=== PATIENT | female | born 1945 | race Two or more races ===

== ENCOUNTER 2020-02-04 12:52 | Emergency (ER) | payer MEDICARE, MEDICAID, SELFPAY ==
--- NOTE | ~2020-02-04 | CT_ITS ---
EXAMINATION: CT brain wo con DATE: 02/04/2020 13:32 INDICATION: Frequent falls. TECHNIQUE: Computed tomography (CT) of the head was performed without intravenous contrast. The dose- length product was 681.00 mGy-cm. The mA was adjusted according to patient size. Iterative reconstruc tion technique was employed. COMPARISON: No prior studies for comparison. FINDINGS: No acute intracranial hemorrhage, infarction, mass or mass effect. Generalized atrophy. Pro minent lateral ventricles. There are scattered mild periventricular and subcortical white matter gandara ges, most likely related to small vessel ischemic disease (microangiopathy). No depressed skull fract ures. There is intracranial atherosclerosis. IMPRESSION: 1. No acute intracranial abnormality. 2: Mild ventriculomegaly which may be secondary to atrophy or normal pressure hydrocephalus. 3: Chronic age-related findings. Reviewed, dictated and finalized at location A.
[2020-02-04 12:57] VITALS: BP 134/86; PULSE 100; RESP 20; TEMP 36.4; O2SAT 99
--- NOTE | 2020-02-04 13:08 | ED.FALL ---
HPI - Fall General Chief Complaint: Fall Stated Complaint: NEURO SYMPTOMS Time Seen by Provider: 02/04/20 13:06 Source: patient and EMS Mode of arrival: EMS Limitations: no limitations History of Present Illness HPI Narrative: A 74 y/o male presents to the ED, via EMS from [facility], with c/o possible stroke. Per EMS, [facility] called EMS due to staff stating he was positive on the [place] Pre[facility] Stroke Scale. The staff told EMS that that he has fallen twice in the last 24 hours. EMS notes that on arrival he was not positive on the [place] scale. EMS adds that he has shuffling ambulation, but that is normal for him according to [place] staff. Pt reports chronic hiccups and vomiting, but denies ABD pain, SEPULVEDA, and dizziness. He notes that he has had chronic hiccups for years and that he gets intermittent episodes that lasts a couple of days. The chronic hiccuping causes him to vomit and he vomited yesterday, but did not vomit today. Pt takes Thorazine daily. MD complaint: other (Possible stroke) Onset (ago): hour(s) (Today) [facility] Associated symptoms (after fall): other (Chronic hiccups, vomiting) Related Data Home Medications Medication Instructions Recorded Confirmed aspirin [Aspir-81] 81 mg PO DAILY 02/04/20 atenolol 02/04/20 chlorpromazine 02/04/20 empagliflozin [Jardiance] mg 02/04/20 finasteride mg 02/04/20 fluoxetine mg 02/04/20 glimepiride mg 02/04/20 levothyroxine 02/04/20 memantine mg 02/04/20 metformin mg 02/04/20 naproxen 02/04/20 omeprazole 02/04/20 pravastatin 02/04/20 Allergies Allergy/AdvReac Type Severity Reaction Status Date / Time No Known Allergies Allergy Verified 02/04/20 15:10 Review of Systems Review of Systems: Narrative: CONSTITUTIONAL: Denies fever, chills, or sweats. Reports chronic hiccups. EYES: Denies visual changes, redness, or discharge. ENT: Denies rhinorrhea, congestion, sore throat, or otalgia. CARDIOVASCULAR: Denies chest pain, palpitations, or edema. RESPIRATORY: Denies cough or dyspnea. GASTROINTESTINAL: Denies abdominal pain, nausea, or diarrhea. Reports vomiting. GENITOURINARY: Denies dysuria or hematuria. SKIN: Denies rash or itching. MUSCULOSKELETAL: Denies back pain, joint pain, or myalgia. NEUROLOGIC: Denies headache, numbness, or weakness. All systems reviewed & are unremarkable except as noted in HPI and below PMFSH Past Medical History Medical History (Updated 02/04/20 @ 15:25 by Africa Solomon MD) Diabetes Hard of hearing Hiccups Chronic Normal pressure hydrocephalus Surgical History Surgical History (Updated 02/04/20 @ 13:29 by Tanya Cochran) No pertinent past surgical history Social History Social History (Updated 02/04/20 @ 13:28 by Tanya Cochran) Smoking status: Unknown if ever smoked Exam Narrative: Exam Narrative: GENERAL: Well-appearing, well-nourished, and in no acute distress. Chronic hiccuping. HEAD: Normocephalic, atraumatic. No cervical spine tenderness. EYES: PERRLA and EOMI. ENT: Nares clear, no rhinorrhea or epistaxis. Mucous membranes moist. NECK: Supple. CHEST: Clear to auscultation. No respiratory distress. No chest wall tenderness. HEART: Regular rate and rhythm. No murmur heard. Normal peripheral pulses. ABDOMEN: Soft, nontender, nondistended, normal active bowel sounds. EXTREMITIES: Normal range of motion. No edema. Pelvis is stable to anterior lateral compression. No limb length discrepancy. No pain with internal or external rotation of bilateral lower extremities. No evidence of deformities. SKIN: Warm, dry, abrasion to right forearm. NEURO: No focal deficits. Alert and oriented X3. EOMs intact without nystagmus. No facial droop/asymmetry noted bilaterally. Grimace intact. Intact sensation in face. Hearing intact bilaterally. Shoulder shrug intact. Strength 5/5 bilateral upper extremities. Strength 5/5 bilateral lower extremities. Reflexes 2+ patell
--- NOTE | 2020-02-04 13:15 | ECG_ITS ---
Measurements Intervals [place] Rate: 101 P: 82 WI: 169 QRS: -28 QRSD: 85 T: 63 QT: 327 QTc: 424 Interpretive Statements SINUS TACHYCARDIA DELAYED PRECORDIAL R/S TRANSITION INFERIOR INFARCT, AGE INDETERMINATE BORDERLINE T WAVE ABNORMALITY- ANTERIOR LEADS BASELINE ARTIFACT- I, II, III, AVR, AVL, AVF, V1-V6 ABNORMAL ECG Electronically Signed On 02-04-2020 15:40:13 CDT by Francisco Javier Hill D.O.
[2020-02-04 14:06] LABS: Basophils Percent Auto 0.3 % (0.2-1.2); Eosinophils Absolute Auto 0.3 K/mm3 (0-0.3); Eosinophils Percent Auto 3.3 % (0-4.4); Hemoglobin 13.6 g/dL (12.0-15.0); Immature Granulocyte Absolute 0.03 K/mm3 (0.00-0.031); Immature Granulocyte Percent A 0.3 % (0-0.5); Lymphocytes Absolute Auto 2.62 K/mm3 (0.9-3.2); Lymphocytes Percent Auto 30.5 % (18.3-44.2); Mean Corpuscular HGB Conc 31.6 g/dl (32-36); Mean Corpuscular Hemoglobin 26.9 pg (26-34); Mean Corpuscular Volume 85.1 fl (80-100); Mean Platelet Volume 10.9 fl (7.4-10.4); Monocytes Absolute Auto 0.8 K/mm3 (0.1-0.6); Monocytes Percent Auto 9.8 % (2.6-8.5); Neutrophils Absolute Auto 4.8 K/mm3 (1.3-6.7); Neutrophils Percent Auto 55.8 % (45.5-73.1); Platelet Count Result 315 k/mm3 (150-375); Red Blood Count 5.05 M/mm3 (4.2-5.4); Red Cell Distribution Width 13.7 % (11.5-14.5); White Blood Count 8.6 K/mm3 (4.5-10.0)
[2020-02-04] MEDS: SODIUM CHLORIDE 0.9% IV 1,000 ML 999 ML IV CONT (14:08)
[2020-02-04 14:22] LABS: Alanine Aminotransferase 15 U/L (4-35); Albumin Level 4.4 g/dL (3.5-5.1); Alkaline Phosphatase 75 U/L (38-126); Aspartate Amino Transferase 20 U/L (14-36); Bilirubin,Total 0.3 mg/dL (0.2-1.3); Blood Urea Nitrogen 14 mg/dL (7-17); Calcium 9.6 mg/dL (8.4-10.2); Carbon Dioxide 27 mmol/L (22-30); Chloride 98 mmol/L (98-107); Estimated CRCL calculation 65 ml/min; Estimated Glomerular Filt Rate > 60; Glucose 128 mg/dL (65-105); Lipase 40 U/L (23-300); Potassium 4.4 mmol/L (3.4-5.0); Sodium 134 mmol/L (137-145)
--- NOTE | 2020-02-04 14:38 | PC.NURSE ---
PT STATES THAT HE IS UNABLE TO GIVE URINE SAMPLE AT THIS TIME.
[2020-02-04 15:03] LABS: Add Urine Microscopic? YES; Appearance Urine Clear (Clear); Bilirubin Urine Negative (Negative); Blood Urine Negative (Negative); Color Urine Colorless (Yellow); Glucose Urine UA 3+ mg/dL (Negative); Ketones Urine Negative (Negative); Leukocyte Esterase Ur Negative LEU/UL (Negative); Nitrate Urine Negative (Negative); Protein Urine Negative (Negative); Specific Grav Ur 1.017 (1.001-1.035); Urobilinogen Urine Negative mg/dL (<2.0)
[2020-02-04 15:19] VITALS: PULSE 89; RESP 18; O2SAT 100
[2020-02-04 15:20] VITALS: BP 157/73; PULSE 87; RESP 15; O2SAT 100
== END 2020-02-04 16:17 ==
PROVIDERS: Emergency Provider Emergency Medicine; PCP Family Medicine
DX: Z04.3 Encounter for examination and observation following other accident (principal); E11.9 Type 2 diabetes mellitus without complications; Z79.84 Long term (current) use of oral hypoglycemic drugs; R06.6 Hiccough; G91.2 (Idiopathic) normal pressure hydrocephalus; W19.XXXA Unspecified fall, initial encounter
CPT/HCPCS: 36415; 70450; 80053; 81001; 83690; 85025; 93005; 96360; 99284; J7030

== ENCOUNTER 2020-02-20 14:04 | Emergency (ER) | payer MEDICARE, MEDICAID, SELFPAY ==
[2020-02-20] VITALS (13 sets, daily range): BP systolic 127; BP diastolic 71; PULSE 64–88; RESP 16–27; TEMP 36.8; O2SAT 94–100
--- NOTE | ~2020-02-20 | CT_ITS ---
EXAMINATION: CT brain wo con INDICATION: Transient alteration of awareness COMPARISON: 05/08/2015 TECHNIQUE: Standard unenhanced head CT. The dose-length product (DLP) was 605.33 mGy-cm. The mA was a djusted according to patient size. Iterative reconstruction technique was employed. FINDINGS: There is no acute intraparenchymal hemorrhage. No evidence of mass lesion. No evidence of a cute infarction. There is mild periventricular and subcortical hypodensity probably related to small vessel ischemic disease. Chronic ventriculomegaly is noted. Intracranial calcified cerebral atheroscl erosis is noted. There are no extra-axial collections. There is no mass effect or midline shift. The orbits and soft tissues are unremarkable. There is mild mucosal thickening of the paranasal sinuses. IMPRESSION: 1. Chronic ventriculomegaly without acute intracranial abnormality. 2. Age related findings. Reviewed, dictated and finalized at location B.
--- NOTE | ~2020-02-20 | XR_ITS ---
EXAMINATION: XR chest 1V 02/20/2020 14:35 INDICATION: Chest pain PROCEDURE: 2 view chest COMPARISON: 04/15/2019 FINDINGS: The lungs are clear. The cardiomediastinal silhouette is within normal limits. There are no pleural effusions. There is no pneumothorax suspected. There are calcifications overlying the le ft thorax, external to the chest. There is atherosclerosis. IMPRESSION: 1: NO ACUTE CARDIOPULMONARY DISEASE. Reviewed, dictated and finalized at location A.
--- NOTE | 2020-02-20 14:20 | ECG_ITS ---
Measurements Intervals [place] Rate: 64 P: 50 CO: 182 QRS: 17 QRSD: 74 T: 57 QT: 391 QTc: 406 Interpretive Statements SINUS RHYTHM LOW QRS VOLTAGE IN PRECORDIAL LEADS DELAYED PRECORDIAL R/S TRANSITION BORDERLINE T WAVE ABNORMALITY- ANT/INF LEADS BASELINE ARTIFACT- I, II, III, AVR, AVL, AVF, V1-V6 BORDERLINE ECG Electronically Signed On 02-20-2020 17:53:58 CDT by Francisco Javier Hill D.O.
--- NOTE | 2020-02-20 14:44 | ED.GENADULT ---
HPI - General Adult General Chief complaint: Unspecified Stated complaint: AMS Time Seen by Provider: 02/20/20 14:05 Source: patient, EMS and RN notes reviewed Mode of arrival: EMS Limitations: no limitations History of Present Illness HPI narrative: Patient is 74-year-old male who presents to emergency department per EMS for evaluation of not wanting to ambulate and possibly abnormal speech that occurred this morning EMS noted upon arrival they stated the patient was speaking normally and was able to ambulate normally patient with history of normal pressure hydrocephalus. Patient on arrival resting comfortably in the room in no distress denying any symptoms or pain or injury or trauma Related Data Home Medications Medication Instructions Recorded Confirmed aspirin [Aspir-81] 02/20/20 atenolol 25 mg PO DAILY 02/20/20 chlorpromazine 10 mg PO BID 02/20/20 empagliflozin [Jardiance] 10 mg PO DAILY 02/20/20 finasteride 5 mg PO DAILY 02/20/20 fluoxetine 20 mg PO DAILY 02/20/20 glimepiride 2 mg PO BID 02/20/20 levothyroxine 25 mcg PO DAILY 02/20/20 memantine 10 mg PO QPM 02/20/20 metformin 500 mg PO BID 02/20/20 naproxen 500 mg PO DAILY PRN 02/20/20 omeprazole 40 mg PO DAILY 02/20/20 pravastatin 10 mg PO DAILY 02/20/20 Allergies Allergy/AdvReac Type Severity Reaction Status Date / Time Fbehqds-Bwo-Qee Reductase Allergy Mild Unknown Verified 02/20/20 14:19 Inhibitor Review of Systems Review of Systems: All systems reviewed & are unremarkable except as noted in HPI and below PMFSH Past Medical History Medical History Normal pressure hydrocephalus Family History Family History Sibling Patient's sister is in good health Mother Patient's mother is Father Patient's father is Social History Social History Smoking status: Never smoker Smoking end date: 11/29/84 Alcohol intake: never Exam Narrative: Exam Narrative: GENERAL: Well-appearing, well-nourished, and in no acute distress. HEAD: Normocephalic, atraumatic. EYES: PERRLA and EOMI. ENT: Nares clear, no rhinorrhea or epistaxis. Mucous membranes moist. Oropharynx without tonsillar hypertrophy exudate or other lesions. NECK: Supple. No adenopathy or masses. CHEST: Clear to auscultation. No respiratory distress. No wheezes rales or rhonchi HEART: Regular rate and rhythm. No murmur heard. Normal peripheral pulses. ABDOMEN: Soft, nontender, nondistended EXTREMITIES: Normal range of motion. No edema. SKIN: Warm, dry, no rash. NEURO: No focal deficits. Alert and oriented person place and reason for being in the emergency department. Cranial nerves II through XII grossly intact. Normal speech. Cerebellar intact. No pronator drift. 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 Course Course Emergency Course: Patient in the room with family noting the patient is at baseline in no distress resting comfortably in the room with no complaints felt appropriate for outpatient reevaluation Vital Signs Vital signs: Vital Signs Temperature 98.2 F 02/20/20 14:09 Pulse Rate 69 02/20/20 14:09 Respiratory Rate 16 02/20/20 14:09 Blood Pressure 127/71 02/20/20 14:09 Pulse Oximetry 100 02/20/20 14:09 Temperature 98.2 F 02/20/20 14:09 Pulse Rate 71 02/20/20 16:30 Respiratory Rate 23 H 02/20/20 16:46 Blood Pressure 127/71 02/20/20 14:09 Pulse Oximetry 99 02/20/20 15:15 Medical Decision Making [facility] Narrative Medical decision making narrative: Patient in the room in no distress no high risk changes in the blood work or imaging felt appropriate for outpatient reevaluation agreeing to follow-up as directed or to return if symptoms worsen family will take the patient back to halfway. Patient was hydrated in th
[2020-02-20 14:48] LABS: Glucose Point of Care 204 (65-105)
[2020-02-20 14:56] LABS: Basophils Percent Auto 0.3 % (0.2-1.2); Eosinophils Absolute Auto 0.3 K/mm3 (0-0.3); Hematocrit 48.2 % (42.0-52.0); Hemoglobin 14.9 g/dL (14.0-18.0); Immature Granulocyte Absolute 0.03 K/mm3 (0.00-0.031); Immature Granulocyte Percent A 0.3 % (0-0.5); Lymphocytes Absolute Auto 2.12 K/mm3 (0.9-3.2); Lymphocytes Percent Auto 24.3 % (18.3-44.2); Mean Corpuscular HGB Conc 30.9 g/dl (32-36); Mean Corpuscular Volume 87.5 fl (80-100); Mean Platelet Volume 11.5 fl (7.4-10.4); Monocytes Absolute Auto 0.7 K/mm3 (0.1-0.6); Monocytes Percent Auto 8.3 % (2.6-8.5); Neutrophils Absolute Auto 5.6 K/mm3 (1.3-6.7); Neutrophils Percent Auto 63.8 % (45.5-73.1); Platelet Count Result 321 k/mm3 (150-375); Red Blood Count 5.51 M/mm3 (4.6-6.20); Red Cell Distribution Width 14.3 % (11.5-14.5); White Blood Count 8.7 K/mm3 (4.5-10.0)
[2020-02-20] MEDS: SODIUM CHLORIDE 0.9% IV 1,000 ML 999 ML IV CONT ×2 (14:58→16:01)
[2020-02-20 15:08] LABS: INR 0.9; Prothrombin Time 11.7 Seconds (11.1-14.7)
[2020-02-20 15:09] LABS: Partial Thromboplastin Time 32.5 SECONDS (22.3-36.8)
[2020-02-20 15:30] LABS: Blood Urea Nitrogen 29 mg/dL (9-20); Calcium 9.4 mg/dL (8.4-10.2); Carbon Dioxide 27 mmol/L (22-30); Chloride 98 mmol/L (98-107); Estimated CRCL calculation 59 ml/min; Estimated Glomerular Filt Rate > 60; Glucose 188 mg/dL (75-110); Potassium 4.1 mmol/L (3.4-5.0); Sodium 139 mmol/L (137-145)
[2020-02-20 15:35] LABS: Add Urine Microscopic? YES; Appearance Urine Clear (Clear); Bilirubin Urine Negative (Negative); Blood Urine Negative (Negative); Color Urine Yellow (Yellow); Glucose Urine UA 3+ mg/dL (Negative); Ketones Urine 1+ mg/dL (Negative); Leukocyte Esterase Ur Negative LEU/UL (Negative); Mucus Urine Rare /lpf; Nitrate Urine Negative (Negative); Protein Urine 1+ mg/dL (Negative); RBC Urine 0-2 /hpf (0-2); Urobilinogen Urine Negative mg/dL (<2.0); WBC Urine 0-3 /hpf
[2020-02-20 15:37] LABS: Specific Grav Ur 1.041 (1.001-1.035)
[2020-02-20 15:41] LABS: Troponin I < 0.012 ng/mL (0.000-0.034)
== END 2020-02-20 17:28 ==
PROVIDERS: Emergency Medicine Emergency Medical Services; Emergency Provider Emergency Medicine; PCP Family Medicine
DX: E86.0 Dehydration (principal); G91.2 (Idiopathic) normal pressure hydrocephalus; Z79.82 Long term (current) use of aspirin; Z79.84 Long term (current) use of oral hypoglycemic drugs; R94.31 Abnormal electrocardiogram [ECG] [EKG]
CPT/HCPCS: 36415; 51701; 70450; 71045; 80048; 81001; 82948; 84484; 85025; 85610; 85730; 93005; 96360; 96361; 99284; J7030

== ENCOUNTER 2020-02-26 08:10 | Inpatient (IN) | payer MEDICARE, MEDICAID, SELFPAY ==
[2020-02-26] VITALS (11 sets, daily range): BP systolic 106–151; BP diastolic 52–72; PULSE 70–108; RESP 12–20; TEMP 36.2–37.2; O2SAT 97–100; BMI 20.8
--- NOTE | ~2020-02-26 | CT_ITS ---
EXAMINATION: CT brain wo con DATE: 02/27/2020 10:58 INDICATION: Encephalopathy TECHNIQUE: Computed tomography (CT) of the head was performed without intravenous contrast. The mA wa s adjusted according to patient size. Iterative reconstruction technique was employed. Exam dose: 60 5.33 mGy-cm total exam DLP. COMPARISON: 02/20/2020 CT brain 05/08/2015 CT brain FINDINGS: The ventricles are chronically prominent. Differential diagnosis includes central atrophy v ersus less likely communicating hydrocephalus. Clinical correlation is advised. There is bilateral carotid siphon internal carotid artery calcification. There is nonspecific diminis hed attenuation of the cerebral white matter, likely due to chronic small vessel ischemic changes. No intracranial mass lesion or hemorrhage or cerebrovascular accident is evident. No midline shift or mass effect. No subdural or epidural hematoma. There is some soft tissue thickening and calcification within the left maxillary sinus. The paranasal sinuses otherwise appear unremarkable. The mastoid air cells are normally developed and aerated. No fracture or bone destruction of the cranial vault. IMPRESSION: Chronic ventriculomegaly Cerebral atherosclerosis and chronic small vessel ischemic changes of the cerebral white matter No acute intracranial finding Reviewed, dictated and finalized at Location A. Reviewed, dictated and finalized at location B. IMPRESSION: Chronic ventriculomegaly Cerebral atherosclerosis and chronic small vessel ischemic changes of the cereb ral white matter No acute intracranial finding
--- NOTE | ~2020-02-26 | XR_ITS ---
EXAMINATION: XR chest 1V portable INDICATION: Shortness of breath TECHNIQUE: Portable AP chest at 0905 hours COMPARISON: 02/20/2020 FINDINGS: The lungs are free of acute opacities. There is no pleural effusion or pneumothorax. The ca rdiomediastinal silhouette is normal. Calcified atherosclerosis is noted. Surgical clips in the right upper quadrant are likely from prior cholecystectomy. IMPRESSION: 1. No acute cardiopulmonary abnormality. Reviewed, dictated and finalized at location A.
--- NOTE | 2020-02-26 08:35 | ED.GENADULT ---
HPI - General Adult General Chief complaint: Unspecified Stated complaint: shivering Time Seen by Provider: 02/26/20 08:32 Source: EMS Mode of arrival: EMS Limitations: other (poor historian) History of Present Illness HPI narrative: Pt is a 74 y/o male who presents to the ED, via EMS, from [facility], with c/o shivering. Per EMS, pt was found on the ground shivering and they got him back in bed. He was sent to the ED, to obtain vital signs d/t the assisted living facility not being able to obtain them d/t his shivering. A complete HPI is limited d/t pt being a poor historian. MD complaint: shivering Onset (ago): unknown Associated symptoms: denies other symptoms Related Data Home Medications Medication Instructions Recorded Confirmed aspirin [Aspir-81] 81 mg PO DAILY 02/04/20 atenolol 02/04/20 chlorpromazine 02/04/20 empagliflozin [Jardiance] mg 02/04/20 finasteride mg 02/04/20 fluoxetine mg 02/04/20 glimepiride mg 02/04/20 levothyroxine 02/04/20 memantine mg 02/04/20 metformin mg 02/04/20 naproxen 02/04/20 omeprazole 02/04/20 pravastatin 02/04/20 aspirin [Aspir-81] 02/20/20 atenolol 25 mg PO DAILY 02/20/20 chlorpromazine 10 mg PO BID 02/20/20 empagliflozin [Jardiance] 10 mg PO DAILY 02/20/20 finasteride 5 mg PO DAILY 02/20/20 fluoxetine 20 mg PO DAILY 02/20/20 glimepiride 2 mg PO BID 02/20/20 levothyroxine 25 mcg PO DAILY 02/20/20 memantine 10 mg PO QPM 02/20/20 metformin 500 mg PO BID 02/20/20 naproxen 500 mg PO DAILY PRN 02/20/20 omeprazole 40 mg PO DAILY 02/20/20 pravastatin 10 mg PO DAILY 02/20/20 Allergies Allergy/AdvReac Type Severity Reaction Status Date / Time No Known Allergies Allergy Verified 02/26/20 08:17 Review of Systems Review of Systems: ROS unobtainable: Yes unobtainable due to mental status PMFSH Past Medical History Medical History (Updated 02/26/20 @ 11:24 by Umer Guido MD) Anemia BPH (benign prostatic hyperplasia) Diabetes Glaucoma Hard of hearing Hiccups Chronic HLD (hyperlipidemia) HTN (hypertension) Hypothyroid Myocardial infarction Normal pressure hydrocephalus Normal pressure hydrocephalus Peripheral neuropathy Seizure Surgical History Surgical History (Updated 02/26/20 @ 08:47 by Ivory Larson) H/O bilateral cataract extraction H/O heart artery stent History of cardiac catheterization Hx of cholecystectomy Social History Social History (Updated 02/26/20 @ 08:41 by Ivory Larson) Smoking end date: 11/29/84 Alcohol intake: never Exam Const: General: healthy appearing, no acute distress and well developed Nutritional Appearance: well nourished Orientation/consciousness: Other orientation findings (Alert) HENMT: Head: normocephalic and atraumatic Ears: external ears normal General nose exam: No nasal discharge present and no epistaxis Face and sinus: face symmetric Mouth: Yes lip normal, Yes tongue normal and Yes moist mucous membranes Eyes: Conjunctivae: conjunctivae normal Sclera: sclerae normal Pupils: Equal, round and reactive pupils present EOM: EOMs intact bilaterally Neck: Neck: full ROM, no lymphadenopathy and supple Thyroid: thyroid normal Chest: Chest palpation & inspection: no tenderness Resp: Effort & Inspection: normal respiratory effort Auscultation: clear to auscultation bilaterally, no rales, no rhonchi, no wheezes and other (breath sounds equal) Cardio: Rate: regular rate Rhythm: regular rhythm Heart sounds: no gallops and no murmurs GI: Inspection: non-distended GI Palp: No abdominal tenderness and Yes Soft to palpation Auscultation: other (bowel sounds present) Back/Spine/Pelvis: Thoracic/Lumbar Spine: thoracic and lumbar spine normal to inspection Skin: General skin exam: normal color and no rashes or lesions noted Neuro: General: moves all extremities (equally) and no focal motor deficits Cranial nerves: Yes facial symmetry Motor exam (neuro)
[2020-02-26 08:52] LABS: Basophils Percent Auto 0.2 % (0.2-1.2); Eosinophils Absolute Auto 0.2 K/mm3 (0-0.3); Eosinophils Percent Auto 1.4 % (0-4.4); Hematocrit 38.3 % (42.0-52.0); Hemoglobin 12.2 g/dL (14.0-18.0); Immature Granulocyte Absolute 0.07 K/mm3 (0.00-0.031); Immature Granulocyte Percent A 0.5 % (0-0.5); Lymphocytes Percent Auto 3.9 % (18.3-44.2); Mean Corpuscular HGB Conc 31.9 g/dl (32-36); Mean Corpuscular Hemoglobin 27.1 pg (26-34); Mean Corpuscular Volume 85.1 fl (80-100); Mean Platelet Volume 10.9 fl (7.4-10.4); Monocytes Absolute Auto 0.6 K/mm3 (0.1-0.6); Monocytes Percent Auto 3.9 % (2.6-8.5); Neutrophils Absolute Auto 13.8 K/mm3 (1.3-6.7); Neutrophils Percent Auto 90.1 % (45.5-73.1); Platelet Count Result 261 k/mm3 (150-375); White Blood Count 15.3 K/mm3 (4.5-10.0)
[2020-02-26 09:03] LABS: Blood Urea Nitrogen 14 mg/dL (9-20); Calcium 8.6 mg/dL (8.4-10.2); Carbon Dioxide 21 mmol/L (22-30); Chloride 102 mmol/L (98-107); Estimated Glomerular Filt Rate > 60; Glucose 155 mg/dL (75-110); Potassium 3.9 mmol/L (3.4-5.0); Sodium 136 mmol/L (137-145)
[2020-02-26] MEDS: LACTATED RINGERS 1,000 ML 250 ML IV CONT (09:18)
[2020-02-26 09:24] LABS: Add Urine Microscopic? YES; Appearance Urine Clear (Clear); Bilirubin Urine Negative (Negative); Blood Urine 2+ (Negative); Color Urine Straw (Yellow); Glucose Urine UA 3+ mg/dL (Negative); Ketones Urine 1+ mg/dL (Negative); Leukocyte Esterase Ur 1+ LEU/UL (Negative); Mucus Urine Rare /lpf; Nitrate Urine Negative (Negative); Protein Urine 1+ mg/dL (Negative); RBC Urine 21-50 /hpf (0-2); Squamous Epithelial Cell Urine Rare /hpf (Few); Urobilinogen Urine Negative mg/dL (<2.0); WBC Urine 31-50 /hpf
[2020-02-26] MEDS: ASPIRIN 81 MG CHEWABLE TABLET 324 MG PO (10:28)
[2020-02-26 10:54] LABS: Lactic Acid Reflex 1.1 mmol/L (0.7-2.1)
--- NOTE | 2020-02-26 11:14 | ECG_ITS ---
Measurements Intervals [place] Rate: 87 P: 47 ND: 158 QRS: 63 QRSD: 90 T: 45 QT: 377 QTc: 455 Interpretive Statements SINUS RHYTHM LOW QRS VOLTAGE IN PRECORDIAL LEADS DELAYED PRECORDIAL R/S TRANSITION INFERIOR ST ELEVATION MYOCARDIAL INFARCT- ACUTE ANTEROLATERAL ST ELEVATION MYOCARDIAL INJURY BASELINE ARTIFACT- I, II, III, AVR, AVL, AVF, V1-V3 ABNORMAL ECG Electronically Signed On 02-26-2020 14:05:51 CDT by Francisco Javier Hill D.O.
--- NOTE | 2020-02-26 11:15 | PC.NURSE ---
1035 EKG noticed on monitor by RN EKG obtained at 1040 1041 STEMI CALLED 1048 4 baby aspirins given PO, 2L O2 via nasal cannula administered Per family (Power of contract attorney) Pt. is a DNR 1050 Pt. family decided against labor contract analyst.
[2020-02-26 11:18] LABS: NT Pro B Type Natriuretic Pept 286 PG/ML (5-100); Troponin I 0.036 ng/mL (0.000-0.034)
--- NOTE | 2020-02-26 13:38 | ADMGEN ---
This patient, Maine Baez, was admitted to IMU Room 203-01 at 1338. Patient/family oriented to hospital policies and general routines including ID bracelet, bed and alarms, visiting hours, pain management, procedures, bathroom and other care routines, personal items, smoking policy, room service/diet, and visiting hours. Valuables list has been completed. Information on how to activate the Rapid Response Team has been discussed. Patient/Family are encouraged to report perceived risks to care and to ask questions if they do not understand what they are told or what they should do.
[2020-02-26] MEDS: LACTATED RINGERS 1,000 ML 125 ML IV CONT ×2 (14:25→22:23)
--- NOTE | 2020-02-26 15:08 | PM.IMHP ---
H&P: HPI History of Present Illness Chief complaint: Stemi/UTI Narrative: Maine Baez is a 74 year old male who resides at [facility]. The patient came in because he was shivering today. Patient is currently sitting in bed rubbing his head when asked if he had headache he stated notes just habit. No shivering or shakes her noticed at this time. The patient was found on the ground shivering and they got him back to bed. Her sent to the emergency room. In the emergency room a STEMI was paged and the patient was evaluated by the technology administrator. It was determined that this is not a STEMI. The patient is not complaining of any chest pain. He is very hard of hearing is difficult to communicate with the patient at this time. His heart rate was 108 blood pressure is 151/72 pulse ox was 99%. Chest x-ray was read as no acute cardiopulmonary abnormalities.Of having normal pressure hydrocephalus. Today the patient's EKG was read as sinus rhythm. Inferior ST-elevation myocardial infarction acute. Anterior lateral ST-elevation myocardial injury baseline artifact. This was read by technology administrator Dr. calhoun. The patient was found have a UTI and was placed on Levaquin. He was also given IV fluids an aspirin. Date of service 02/26/2020 Review of Systems Review of Systems: All systems reviewed & are unremarkable except as noted in HPI and below Constitutional: Constitutional: Reports as per HPI and Reports no additional constitutional complaints Eyes: Eyes: Reports as per HPI and Reports no additional eye complaints ENT: Reports system reviewed and no additional complaints, except as documented and Reports Normal hearing present Cardiovascular: Cardiovascular: Reports no additional cardiovascular complaints Respiratory: Respiratory: Reports no additional respiratory complaints and Reports no additional respiratory complaints Gastrointestinal: Gastrointestinal: Reports as per HPI and Reports no additional gastrointestinal complaints Musculoskeletal: Musculoskeletal: Reports no additional musculoskeletal complaints Integumentary/Breasts: Skin/Breast: Reports system reviewed and no additional complaints, except as docu and Reports as per HPI Neurologic: Reports system reviewed and no additional complaints, except as documented, Reports as per HPI and Reports Normal hearing present Psychiatric: Psychiatric: Reports no additional psychiatric complaints and Reports as per HPI Endocrine: Endocrine: Reports no additional endocrine complaints Hematologic/Lymphatic: Hematologic/Lymphatic: Reports no additional hematologic/lymphatic complaints Allergic/Immunologic: Allergic/Immunologic: Reports no additional allergic/immunologic complaints [facility] Past Medical History Medical History (Updated 02/26/20 @ 16:06 by Lisbeth Johnson NP) Anemia BPH (benign prostatic hyperplasia) Dementia Diabetes Glaucoma Hard of hearing Hiccups Chronic HLD (hyperlipidemia) HTN (hypertension) Hypothyroid Myocardial infarction Normal pressure hydrocephalus Normal pressure hydrocephalus Peripheral neuropathy Seizure Surgical History Surgical History H/O bilateral cataract extraction H/O heart artery stent History of cardiac catheterization Hx of cholecystectomy Family History Family History Sibling Patient's sister is in good health Mother Patient's mother is Father Patient's father is Social History Social History (Updated 02/26/20 @ 16:21 by Lisbeth Johnson NP) Social History: The patient is at [facility]. He has 3 children. The daughter in-law works here at [employer] the we department. Patient is listed as a do not resuscitate. 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 Andressa
[2020-02-26 16:14] LABS: Glucose Point of Care 67 (65-105)
[2020-02-26 16:35] LABS: Glucose Point of Care 74 (65-105)
[2020-02-26] MEDS: ENOXAPARIN 40 MG/0.4 ML SYRINGE SUB-Q (17:26)
[2020-02-26] MEDS: GLIMEPIRIDE 2 MG TABLET PO (17:28)
[2020-02-26] MEDS: FINASTERIDE 5 MG TABLET PO (20:15)
[2020-02-26] MEDS: PRAVASTATIN SODIUM 10 MG TABLET PO (20:15)
[2020-02-26] MEDS: PANTOPRAZOLE 40 MG TABLET PO (20:15)
[2020-02-26] MEDS: FAMOTIDINE 20 MG/2 ML VIAL IV PUSH (20:16)
[2020-02-26 21:03] LABS: Glucose Point of Care 132 (65-105)
[2020-02-27] VITALS (14 sets, daily range): BP systolic 112–142; BP diastolic 54–73; PULSE 71–106; RESP 14–22; TEMP 36.2–36.6; O2SAT 97–100
[2020-02-27 04:59] LABS: Basophils Percent Auto 0.5 % (0.2-1.2); Eosinophils Absolute Auto 0.3 K/mm3 (0-0.3); Eosinophils Percent Auto 4.2 % (0-4.4); Hematocrit 35.6 % (42.0-52.0); Hemoglobin 10.9 g/dL (14.0-18.0); Immature Granulocyte Absolute 0.04 K/mm3 (0.00-0.031); Immature Granulocyte Percent A 0.7 % (0-0.5); Lymphocytes Absolute Auto 1.08 K/mm3 (0.9-3.2); Lymphocytes Percent Auto 18.2 % (18.3-44.2); Mean Corpuscular HGB Conc 30.6 g/dl (32-36); Mean Corpuscular Hemoglobin 26.6 pg (26-34); Mean Corpuscular Volume 86.8 fl (80-100); Mean Platelet Volume 11.8 fl (7.4-10.4); Monocytes Absolute Auto 0.6 K/mm3 (0.1-0.6); Monocytes Percent Auto 10.1 % (2.6-8.5); Neutrophils Absolute Auto 3.9 K/mm3 (1.3-6.7); Neutrophils Percent Auto 66.3 % (45.5-73.1); Platelet Count Result 242 k/mm3 (150-375); White Blood Count 5.9 K/mm3 (4.5-10.0)
[2020-02-27 05:18] LABS: Alanine Aminotransferase 26 U/L (4-50); Albumin Level 3.3 g/dL (3.5-5.1); Alkaline Phosphatase 57 U/L (38-126); Aspartate Amino Transferase 153 U/L (17-59); Bilirubin,Total 0.3 mg/dL (0.2-1.3); Blood Urea Nitrogen 8 mg/dL (9-20); Calcium 8.3 mg/dL (8.4-10.2); Carbon Dioxide 28 mmol/L (22-30); Chloride 101 mmol/L (98-107); Estimated CRCL calculation 77 ml/min; Estimated Glomerular Filt Rate > 60; Glucose 58 mg/dL (75-110); Magnesium 1.7 mg/dL (1.6-2.3); Potassium 3.7 mmol/L (3.4-5.0); Sodium 133 mmol/L (137-145)
[2020-02-27] MEDS: DEXTROSE 50% 25 GM/50 ML SYRINGE IV PUSH (05:31)
[2020-02-27] MEDS: LEVOTHYROXINE SODIUM 25 MCG TABLET PO (05:32)
[2020-02-27] MEDS: LACTATED RINGERS 1,000 ML 125 ML IV CONT (05:32)
--- NOTE | 2020-02-27 06:00 | ECHO_ITS ---
Patient Info Name: Maine Beaz Age: 74 years : 1945 Gender: Male Ht: 70 in Wt: 145 lbs BSA: 1.80 m2 HR: 60 bpm BP: 114 / 62 mmHg Heart Rhythm: Indeterminant Technical Quality: Good Exam Date: 02/27/2020 8:21 AM Exam Location: [facility] Card Pulmonary Patient Status: Inpatient Admit Date: 02/26/2020 Staff Ordering Physician: Umer Guido MD Broker In Charge: Jagjit Ring, RAQUEL, RT Attending Provider: Jose Chavez MD Referring Physician: Hay HAWK; Exam Type: CA echo dop color flow w con Study Info Indications I21.3 - ST elevation (STEMI) myocardial infarction of unspecified site Complete two-dimensional, color flow and Doppler transthoracic echocardiogram is performed with contrast to opacify the left ventrical and to improve the deliniation of the left ventrical endocarial boarders. Summary 1. Normal left ventricular size with moderate concentric hypertrophy. Good global left ventricular function, measured EF 52%, visual EF 60-65%. Mild hypokinesis of the basal inferoseptal segment. Normal diastolic function. 2. Mild left atrial enlargement. 3. No significant valve disease. 4. Calcified aortic root. 5. Technically difficult study, IV definity echo contrast used. Left Ventricle Left ventricular chamber dimension is normal. Left ventricular systolic function is mildly reduced, estimated at 60-65%. There is moderately increased left ventricular wall thickness. Left ventricular septal wall motion is normal. The left ventricular diastolic function is normal. Right Ventricle Right ventricular chamber dimension is moderately enlarged. Right ventricular systolic function is reduced. Left Atria Left atrial chamber dimension is mildly enlarged. Right Atria Right atrial chamber dimension is normal. Aortic Valve The aortic valve is trileaflet. There is no aortic valve sclerosis. There is no aortic valve stenosis. There is no aortic valve regurgitation. Pulmonic Valve The pulmonic valve is normal. There is no pulmonic valve stenosis. There is no pulmonic regurgitation. Mitral Valve The mitral valve has normal leaflets. There is no mitral valve stenosis. There is trace mitral valve regurgitation. Tricuspid Valve The tricuspid valve leaflets are normal. There is no significant tricuspid valve stenosis. There is trace tricuspid valve regurgitation. Mild pulmonary hypertension, estimated pulmonary arterial systolic pressure is Empty. Pericardium/Pleural The pericardium appears normal. There is no pericardial effusion. Inferior Vena Cava Normal inferior vena cava with >50% collapse upon inspiration consistent with Empty right atrial pressure, Empty. Aorta The aortic root size at the sinus of Valsalva is normal. The prox ascending aorta size is normal. There is mild aortic atherosclerosis. Left Ventricular Outflow Tract Name Value Normal LVOT 2D LVOT Diameter 1.97 cm LVOT Doppler LVOT Peak Gradient 2 mmHg LVOT Mean Gradient 1 mmHg LVOT VTI 12.00 cm LVOT VTI/AV VTI Rati
[2020-02-27 06:07] LABS: Glucose Point of Care 109 (65-105)
[2020-02-27 07:57] LABS: Glucose Point of Care 85 (65-105)
[2020-02-27] MEDS: MEMANTINE 10 MG TABLET PO (09:05)
[2020-02-27] MEDS: FAMOTIDINE 20 MG/2 ML VIAL IV PUSH (09:05)
[2020-02-27] MEDS: FLUOXETINE HCL 20 MG CAP PO (09:05)
[2020-02-27] MEDS: PANTOPRAZOLE 40 MG TABLET PO ×2 (09:05→20:50)
[2020-02-27] MEDS: ASPIRIN 81 MG ENTERIC TABLET PO (09:05)
--- NOTE | 2020-02-27 09:45 | PM.IMPN ---
Progress Note: A&P Assessment and Plan (1) ST elevation myocardial infarction (STEMI): Qualifiers: Involved coronary artery: unspecified coronary artery Qualified Code(s): I21.3 - ST elevation (STEMI) myocardial infarction of unspecified site Code(s): I21.3 - ST elevation (STEMI) myocardial infarction of unspecified site Status: Acute Assessment and Plan: The patient without complains of pain today but this probably unreliable. Troponin up to 15.6. Patient is a DNR and that the power honey liquefier does not want any further testing at this time. The patient remains stable. Okay to move out of IMU. Continue aspirin and atenolol. Follow up on Echo results (2) Acute UTI: Code(s): N39.0 - Urinary tract infection, site not specified Status: Acute Assessment and Plan: Patient was on levofloxacin in the emergency room but changed to Rocephin. Urine cultures are pending. Follow up on urine culture (3) Encephalopathy: Code(s): G93.40 - Encephalopathy, unspecified Status: Acute Assessment and Plan: Patient's mental status appears to wax and wane. Could be delirium related to the infection. Patient had recent CT of the brain 7 days ago for transient alteration of awareness. Will repeat CT. Start PT and OT. Stop IV fluids. (4) Shivering: Code(s): R68.83 - Chills (without fever) Status: Acute Assessment and Plan: Patient presented with shivering. Presumably related to the non ST-elevation [place]. No blood cultures were drawn. Urine culture pending. No further evidence of shivering. Continue Rocephin. Follow up on urine culture (5) Dementia: Qualifiers: Dementia behavioral disturbance: with behavioral disturbance Dementia type: unspecified type Qualified Code(s): F03.91 - Unspecified dementia with behavioral disturbance Code(s): F03.90 - Unspecified dementia without behavioral disturbance Status: Chronic Assessment and Plan: Patient alert and pleasant. Continue Thorazine and Prozac. Continue with Namenda. (6) Diabetes: Qualifiers: Diabetes mellitus complication status: without complication Diabetes mellitus oysterman insulin use: without half-way use Diabetes mellitus type: type 2 Qualified Code(s): E11.9 - Type 2 diabetes mellitus without complications Code(s): E11.9 - Type 2 diabetes mellitus without complications Status: Chronic Assessment and Plan: Glucose low this morning at 58. Amaryl stopped. He also takes Jardiance and Metformin both currently on hold. Continue Accu-Cheks and cover with sliding scale. (7) BPH (benign prostatic hyperplasia): Qualifiers: Lower urinary tract symptom presence: unspecified whether lower urinary tract symptoms present Qualified Code(s): N40.0 - Benign prostatic hyperplasia without lower urinary tract symptoms Code(s): N40.0 - Benign prostatic hyperplasia without lower urinary tract symptoms Status: Chronic Assessment and Plan: Stable. Bladder does not feel distended. Renal function normal. Continue with finasteride. (8) Hypothyroid: Qualifiers: Hypothyroidism type: unspecified Qualified Code(s): E03.9 - Hypothyroidism, unspecified Code(s): E03.9 - Hypothyroidism, unspecified Status: Chronic Assessment and Plan: TSH normal. Continue with levothyroxine. (9) HTN (hypertension): Qualifiers: Hypertension type: essential hypertension Qualified Code(s): I10 - Essential (primary) hypertension Code(s): I10 - Essential (primary) hypertension Status: Chronic Assessment and Plan: Blood pressure reviewed on 02/27/2020. Blood pressure well controlled. Continue with atenolol for now. (10) HLD (hyperlipidemia): Qualifiers: Hyperlipidemia type: unspecified Qualified Code(s): E78.5 - Hyperlipidemia, unspecified
[2020-02-27 10:16] LABS: Creatine Kinase 818 U/L (55-170)
[2020-02-27] MEDS: ONDANSETRON INJ 4 MG/2 ML VIAL IV PUSH (11:20)
[2020-02-27] MEDS: INSULIN ASPART (*BKC) 100 UNITS/ML SUB-Q (11:23)
[2020-02-27] MEDS: atenoloL 25 MG TABLET PO (11:24)
[2020-02-27 12:11] LABS: Glucose Point of Care 240 (65-105)
[2020-02-27 16:47] LABS: Glucose Point of Care 195 (65-105)
[2020-02-27] MEDS: ENOXAPARIN 40 MG/0.4 ML SYRINGE SUB-Q (17:33)
[2020-02-27] MEDS: FINASTERIDE 5 MG TABLET PO (20:50)
[2020-02-27] MEDS: PRAVASTATIN SODIUM 10 MG TABLET PO (20:50)
[2020-02-27 21:31] LABS: Glucose Point of Care 145 (65-105)
--- NOTE | 2020-02-27 21:54 | PC.NURSE ---
This patient, Maine Baez, was received from [ IMU 203] on 02/27/20 at 2035. Personal belongings list checked and signed. Patient/family oriented to unit policies and routines
[2020-02-28] VITALS (8 sets, daily range): BP systolic 92–116; BP diastolic 51–62; PULSE 68–83; RESP 14–20; TEMP 36.1–36.6; O2SAT 97–100
[2020-02-28 06:00] LABS: Alanine Aminotransferase 22 U/L (4-50); Albumin Level 3.2 g/dL (3.5-5.1); Alkaline Phosphatase 60 U/L (38-126); Aspartate Amino Transferase 79 U/L (17-59); Bilirubin,Total 0.3 mg/dL (0.2-1.3); Blood Urea Nitrogen 8 mg/dL (9-20); Calcium 8.4 mg/dL (8.4-10.2); Carbon Dioxide 26 mmol/L (22-30); Chloride 100 mmol/L (98-107); Creatine Kinase 1057 U/L (55-170); Estimated CRCL calculation 77 ml/min; Estimated Glomerular Filt Rate > 60; Glucose 119 mg/dL (75-110); Potassium 3.6 mmol/L (3.4-5.0); Sodium 132 mmol/L (137-145)
[2020-02-28 06:14] LABS: Hematocrit 34.1 % (42.0-52.0); Hemoglobin 11.2 g/dL (14.0-18.0); Mean Corpuscular HGB Conc 32.8 g/dl (32-36); Mean Corpuscular Hemoglobin 27.3 pg (26-34); Mean Platelet Volume 11.3 fl (7.4-10.4); Platelet Count Result 230 k/mm3 (150-375); Red Blood Count 4.11 M/mm3 (4.6-6.20)
[2020-02-28] MEDS: LEVOTHYROXINE SODIUM 25 MCG TABLET PO (06:35)
[2020-02-28 08:09] LABS: Glucose Point of Care 122 (65-105)
[2020-02-28] MEDS: PANTOPRAZOLE 40 MG TABLET PO ×2 (08:34→22:47)
[2020-02-28] MEDS: FLUOXETINE HCL 20 MG CAP PO (08:34)
[2020-02-28] MEDS: MEMANTINE 10 MG TABLET PO (08:34)
[2020-02-28] MEDS: ASPIRIN 81 MG ENTERIC TABLET PO (08:35)
[2020-02-28] MEDS: ACETAMINOPHEN 325 MG TABLET 650 MG PO ×2 (11:34→22:55)
[2020-02-28] MEDS: atenoloL 25 MG TABLET PO (11:37)
[2020-02-28 11:42] LABS: Glucose Point of Care 150 (65-105)
[2020-02-28 12:05] LABS: Creatine Kinase 823 U/L (55-170)
--- NOTE | 2020-02-28 13:41 | PCPTNOTE ---
Attempted Therapy Session. Pt was sleeping and unable to wake fully. Will attempt therapy session again.
--- NOTE | 2020-02-28 14:19 | PM.IMPN ---
Progress Note: A&P Assessment and Plan (1) ST elevation myocardial infarction (STEMI): Qualifiers: Involved coronary artery: unspecified coronary artery Qualified Code(s): I21.3 - ST elevation (STEMI) myocardial infarction of unspecified site Code(s): I21.3 - ST elevation (STEMI) myocardial infarction of unspecified site Status: Acute Assessment and Plan: The patient with complains of midl chest pain today but unclear on how relaible this is. Troponin up to 15.6. Echo showing EF 52% with mild HK of the basal inferoseptal wall (but visually 60-65% with normal global LV systolic function). Patient is a DNR and that the power banking attorney does not want any further testing at this time. The patient remains stable. Continue aspirin. Change to metoprolol. Statin on hold due to elevated CK. Consider adding Imdur is persistent CP complaints. Plan for medical management. (2) Acute UTI: Code(s): N39.0 - Urinary tract infection, site not specified Status: Acute Assessment and Plan: Patient was on levofloxacin in the emergency room but changed to Rocephin. Urine cultures growing EColi sensitive to Rocephin. (3) Encephalopathy: Code(s): G93.40 - Encephalopathy, unspecified Status: Acute Assessment and Plan: Patient's mental status appears to wax and wane. Could be delirium related to the infection. CT of the brain showing no acute changes. He is better today so possibly AMS related to the UTI. Continue PT and OT. (4) Shivering: Code(s): R68.83 - Chills (without fever) Status: Acute Assessment and Plan: Patient presented with shivering. Presumably related to the non ST-elevation [place] but consider transient bacteremia from the UTI or from the Thorazine which can alter body temperature regulation. No blood cultures were drawn. Urine culture noted as above. No further evidence of shivering. Continue Rocephin. (5) Rhabdomyolysis: Qualifiers: Rhabdomyolysis type: non-traumatic Qualified Code(s): M62.82 - Rhabdomyolysis Code(s): M62.82 - Rhabdomyolysis Status: Acute Assessment and Plan: Probably related to the shivering. Total CK 818 but climbed to 1057 this morning. Even at this level, this should not cause renal issues. UA with blood but has UTI. Repeat CK to ensure it is trending down. Hold on IVF (BUN 8 currently). CK 823 now. (6) Dementia: Qualifiers: Dementia behavioral disturbance: with behavioral disturbance Dementia type: unspecified type Qualified Code(s): F03.91 - Unspecified dementia with behavioral disturbance Code(s): F03.90 - Unspecified dementia without behavioral disturbance Status: Chronic Assessment and Plan: Patient alert and pleasant. Continue Thorazine and Prozac. Continue with Namenda. (7) Diabetes: Qualifiers: Diabetes mellitus complication status: without complication Diabetes mellitus remote computer terminal operator insulin use: without remote computer terminal operator use Diabetes mellitus type: type 2 Qualified Code(s): E11.9 - Type 2 diabetes mellitus without complications Code(s): E11.9 - Type 2 diabetes mellitus without complications Status: Chronic Assessment and Plan: A1c 6.8 in November. Glucose reviewed on 02/28/20. Glucose well controlled. Amaryl has been stopped. He also takes Jardiance and Metformin both currently on hold. Continue Accu-Cheks and cover with sliding scale. Will resume Metformin and continue to monitor. No plans to resume Amaryl and probably Jardiance. (8) BPH (benign prostatic hyperplasia): Qualifiers: Lower urinary tract symptom presence: unspecified whether lower urinary tract symptoms present Qualified Code(s): N40.0 - Benign prostatic hyperplasia without lower urinary tract symptoms Code(s): N40.0 - Benign prostatic hyperplasia without lower urinary tract symptoms Status: Chronic
--- NOTE | 2020-02-28 14:25 | PCPTNOTE ---
Attempted Therapy session again. Pt was sleeping soundly upon entering room. Will continue with therapy per POC.
[2020-02-28 16:54] LABS: Glucose Point of Care 105 (65-105)
[2020-02-28] MEDS: ENOXAPARIN 40 MG/0.4 ML SYRINGE SUB-Q (17:09)
[2020-02-28] MEDS: metFORMIN HCL 500 MG TABLET PO (17:32)
[2020-02-28] MEDS: FINASTERIDE 5 MG TABLET PO (22:47)
[2020-02-28] MEDS: METOPROLOL TARTRATE 12.5 MG TABLET PO (22:47)
[2020-02-29 04:09] LABS: Glucose Point of Care 157 (65-105)
[2020-02-29 05:33] VITALS: BP 101/64; PULSE 68; RESP 16; TEMP 36.1; O2SAT 100
[2020-02-29] MEDS: LEVOTHYROXINE SODIUM 25 MCG TABLET PO (06:37)
[2020-02-29 07:38] LABS: Glucose Point of Care 128 (65-105)
[2020-02-29] MEDS: metFORMIN HCL 500 MG TABLET PO ×2 (07:58→17:08)
[2020-02-29] MEDS: MEMANTINE 10 MG TABLET PO (08:32)
[2020-02-29] MEDS: ASPIRIN 81 MG ENTERIC TABLET PO (08:32)
[2020-02-29 08:33] VITALS: PULSE 64; RESP 16; O2SAT 100
[2020-02-29] MEDS: PANTOPRAZOLE 40 MG TABLET PO (08:33)
[2020-02-29] MEDS: METOPROLOL TARTRATE 12.5 MG TABLET PO (08:33)
[2020-02-29] MEDS: FLUOXETINE HCL 20 MG CAP PO (08:33)
[2020-02-29 11:20] LABS: Glucose Point of Care 163 (65-105)
--- NOTE | 2020-02-29 11:51 | PM.DS ---
DS: Diagnosis Admitting Diagnosis Admitting Diagnosis: ST elevation (STEMI) myocardial infarction of unspecified site Discharge Diagnosis (1) ST elevation myocardial infarction (STEMI): Qualifiers: Involved coronary artery: unspecified coronary artery Qualified Code(s): I21.3 - ST elevation (STEMI) myocardial infarction of unspecified site Code(s): I21.3 - ST elevation (STEMI) myocardial infarction of unspecified site Status: Acute Assessment and Plan: STEMI was called but it was decided that intervention was not warranted. Troponin up to 15.6. Echo showing EF 52% with mild HK of the basal inferoseptal wall (but visually 60-65% with normal global LV systolic function). Patient is a DNR and that the power collections attorney did not want any further testing at this time. The patient remained stable. We continued aspirin and metoprolol. Statin on hold due to elevated CK. (2) Acute UTI: Code(s): N39.0 - Urinary tract infection, site not specified Status: Acute Assessment and Plan: Patient was on levofloxacin in the emergency room but changed to Rocephin. Urine cultures growing EColi sensitive to Rocephin. (3) Encephalopathy: Code(s): G93.40 - Encephalopathy, unspecified Status: Acute Assessment and Plan: Patient's mental status initally appeared to wax and wane felt related to delerium/toxic encephalopathy related to the UTI. CT of the brain showing no acute changes. His symptoms improved with treatment of the UTI. (4) Shivering: Code(s): R68.83 - Chills (without fever) Status: Acute Assessment and Plan: Patient presented with shivering. Presumably related to the non ST-elevation [place] but consider transient bacteremia from the UTI or from the Thorazine which can alter body temperature regulation. No blood cultures were drawn. Urine culture noted above. No further evidence of shivering. (5) Dementia: Qualifiers: Dementia behavioral disturbance: with behavioral disturbance Dementia type: unspecified type Qualified Code(s): F03.91 - Unspecified dementia with behavioral disturbance Code(s): F03.90 - Unspecified dementia without behavioral disturbance Status: Chronic Assessment and Plan: Patient remianed alert and pleasant. We continued Thorazine, Prozac and Namenda. (6) Rhabdomyolysis: Qualifiers: Rhabdomyolysis type: non-traumatic Qualified Code(s): M62.82 - Rhabdomyolysis Code(s): M62.82 - Rhabdomyolysis Status: Acute Assessment and Plan: Probably related to the shivering. Total CK 818 but climbed to 1057 before trending down. Even at this level, this should not cause renal issues. UA with blood but has UTI. (7) Diabetes: Qualifiers: Diabetes mellitus complication status: without complication Diabetes mellitus long-term insulin use: without joint terminal attack controller use Diabetes mellitus type: type 2 Qualified Code(s): E11.9 - Type 2 diabetes mellitus without complications Code(s): E11.9 - Type 2 diabetes mellitus without complications Status: Chronic Assessment and Plan: A1c 6.8 in November. Glucose monitored closely. Glucose remained well controlled. Amaryl was stopped. He also takes Jardiance and Metformin both of which were held. Continue Accu-Cheks and cover with sliding scale. We resumed Metformin. No plans to resume Amaryl or Jardiance. (8) BPH (benign prostatic hyperplasia): Qualifiers: Lower urinary tract symptom presence: unspecified whether lower urinary tract symptoms present Qualified Code(s): N40.0 - Benign prostatic hyperplasia without lower urinary tract symptoms Code(s): N40.0 - Benign prostatic hyperplasia without lower urinary tract symptoms Status: Chronic Assessment and Plan: Stable. Renal function remained normal. We continued with finasteride. (9) Hypothyroid:
[2020-02-29] MEDS: ACETAMINOPHEN 325 MG TABLET 650 MG PO (14:15)
--- NOTE | 2020-02-29 14:26 | P.CDI_ITS ---
CDI Query Clarification Request -Encephalopathy has been documented Please further specify type of encephalopathy: * Metabolic * Toxic * Hepatic * Hypertensive * Other * Unable to determine <Sri Castillo RN - Last Filed: 02/29/20 14:27>
--- NOTE | 2020-02-29 14:26 | WPDCDIQUERY2 ---
CDI Query Clarification Request -Encephalopathy has been documented Please further specify type of encephalopathy: Metabolic Toxic Hepatic Hypertensive Other Unable to determine <Sri Castillo RN - Last Filed: 02/29/20 14:27>
[2020-02-29 14:48] VITALS: BP 102/62; PULSE 71; RESP 16; TEMP 35.8; O2SAT 100
[2020-02-29 16:29] LABS: Glucose Point of Care 149 (65-105)
== END 2020-02-29 17:45 | DRG 280 ==
LOC: ANHED 11:31 → ANH3MED 02-28 20:08 → ANHIMU 03-04 09:05
PROVIDERS: Nurse Practitioner; Admitting Provider Family Medicine; Emergency Provider Emergency Medicine; PCP Family Medicine; Visit Provider Internal Medicine
DX: I21.3 ST elevation (STEMI) myocardial infarction of unspecified site (principal); G92 Toxic encephalopathy; N39.0 Urinary tract infection, site not specified; G91.2 (Idiopathic) normal pressure hydrocephalus; F03.91 Unspecified dementia, unspecified severity, with behavioral disturbance; R47.01 Aphasia; M62.82 Rhabdomyolysis; N40.0 Benign prostatic hyperplasia without lower urinary tract symptoms; E11.9 Type 2 diabetes mellitus without complications; H40.9 Unspecified glaucoma; H91.90 Unspecified hearing loss, unspecified ear; R06.6 Hiccough; E78.5 Hyperlipidemia, unspecified; I10 Essential (primary) hypertension; E11.42 Type 2 diabetes mellitus with diabetic polyneuropathy; E03.9 Hypothyroidism, unspecified; I25.2 Old myocardial infarction; Z98.41 Cataract extraction status, right eye; Z98.42 Cataract extraction status, left eye; Z95.5 Presence of coronary angioplasty implant and graft; Z90.49 Acquired absence of other specified parts of digestive tract; Z66 Do not resuscitate; Z87.891 Personal history of nicotine dependence; B96.20 Unspecified Escherichia coli [E. coli] as the cause of diseases classified elsewhere
CPT/HCPCS: 36415; 51701; 70450; 71045; 80048; 80053; 81001; 82550; 83605; 83735; 83880; 84443; 84484; 85025; 85027; 87077; 87086; 87088; 87186; 93005; 96361; 96365; 97110; 97116; 97162; 97165; 97535; 99291; A9270; C8929; J0696; J1650; J1815; J1956; J2405; J7120; Q9957

== ENCOUNTER 2020-03-29 11:00 | Inpatient (IN) | payer MEDICARE, MEDICAID, SELFPAY ==
[2020-03-29] VITALS (9 sets, daily range): BP systolic 126–151; BP diastolic 69–87; PULSE 70–94; RESP 14–30; TEMP 36.3–37.6; O2SAT 97–100; BMI 20.6
--- NOTE | ~2020-03-29 | XR_ITS ---
EXAMINATION: XR lumbar puncture therapeutic DATE: 03/31/2020 18:28 INDICATION: Normal pressure hydrocephalus. TECHNIQUE: The skin overlying the L3-L4 level was prepped and draped in usual sterile fashion. Subcu taneous 1% lidocaine was used for local anesthesia. A 20 gauge spinal needle was advanced under fluo roscopic guidance. The needle was removed and the entry site was cleaned and dressed. There were no immediate complications. Fluoroscopy exposure time was 0.1 minutes. The total number of images was 1. FINDINGS: Real-time fluoroscopy demonstrates the needle at the L3-L4 level. The opening pressure was 16 cm water (Normal range is variably defined as 6-20 cm water and up to 25 cm water in obese patient s. Pressure >25 cm water is one of the modified Dandy criteria for idiopathic intracranial hypertensi on). 30 mL of clear, colorless fluid was collected in 4 tubes. IMPRESSION: 1. Successful fluoro-guided lumbar puncture. Reviewed, dictated and finalized at location A.
--- NOTE | ~2020-03-29 | CT_ITS ---
EXAMINATION: CT abdomen pelvis wo con DATE: 03/29/2020 11:37 INDICATION: Vomiting. Altered mental status. TECHNIQUE: Computed tomography (CT) of the abdomen and pelvis was performed without intravenous contr ast. Automated exposure control and iterative reconstruction technique were employed. The dose-length product was 477.95 mGy-cm. COMPARISON: None FINDINGS: Small left and tiny right posteriorly layering pleural effusions with dependent atelectasis in the bi lateral lower lobes. Heart size is normal. Atherosclerotic coronary artery Calcination cases. No saloni cardial effusion. Small sliding-type hiatal hernia. Cholecystectomy clips at the gallbladder fossa. L iver, spleen, pancreas, bilateral adrenal glands and kidneys are normal. Normal appendix. There is ex tensive colonic diverticulosis without adjacent inflammatory change to suggest diverticulitis. No bow el obstruction. A couple small fat-containing periumbilical hernias, one cephalad and 1 caudal to the umbilicus. No free intraperitoneal gas or fluid. No pathologically enlarged abdominal or pelvic lymp hadenopathy. There is calcified atherosclerosis of the aorta and many of the other arteries. Mild to moderate degenerative skeletal changes at the bilateral hips and lower lumbar spine. IMPRESSION: 1. No acute intra-abdominal/pelvic process. 2. Small sliding-type hiatal hernia. 3. Small left and tiny right pleural effusions. 4. Extensive diverticulosis. 5. Couple small fat-containing paraumbilical hernias. Reviewed, dictated and finalized at location A.
--- NOTE | ~2020-03-29 | MR_ITS ---
EXAMINATION: MR brain/brain stem wo/w con DATE: 03/31/2020 09:19 INDICATION: Altered mental status. TECHNIQUE: Magnetic resonance imaging (MRI) of the brain and brainstem was performed without and with 14 cc MultiHance intravenous contrast. Sequences included sagittal and axial T1-weighted SE, axial d iffusion-weighted FS SE, axial T2*-weighted GRE, axial T2-weighted FLAIR Propeller, and axial T2-weig hted Propeller. Apparent diffusion coefficient (ADC) maps were created. COMPARISON: Comparison to multiple prior studies sequentially, with oldest reviewed study dated 06/07. . FINDINGS: Stable chronic ventriculomegaly, likely due to hydrocephalus ex vacuo. Normal pressure hydr ocephalus less favored. Clinically correlate. There are scattered mild periventricular and subcortica l white matter changes, most likely related to small vessel ischemic disease (microangiopathy). No ac genna intracranial hemorrhage, infarction or mass. No abnormal contrast enhancement. Mucosal thickening in left maxillary sinus. Structures of the posterior fossa are unremarkable. IMPRESSION: 1. Stable chronic ventriculomegaly, likely secondary to chronic atrophy, although normal pressure hyd rocephalus not excluded. Clinically correlate. 2: Chronic age-related findings. 3: Mild left maxillary sinus disease. Reviewed, dictated and finalized at location A. IMPRESSION: 1. Stable chronic ventriculomegaly, likely secondary to chronic atrophy, althou gh normal pressure hydrocephalus not excluded. Clinically correlate. 2: Chronic age-related findings. 3: Mild left maxillary sinus disease.
--- NOTE | ~2020-03-29 | CT_ITS ---
EXAMINATION: CT brain wo con DATE: 03/29/2020 11:38 INDICATION: Altered mental status. 2 weeks of weakness. Vomiting. TECHNIQUE: Computed tomography (CT) of the head was performed without intravenous contrast. Sagittal and coronal reconstructions were performed. The mA was adjusted according to patient size. Iterative reconstruction technique was employed. The dose-length product was 605.33 mGy-cm. COMPARISON: head CT dated 02/27/2020 and brain MR dated 06/07/2018 FINDINGS: No acute intracranial hemorrhage, acute infarction or abnormal extra axial fluid collection. No inter jaden change in dilation of the lateral, third and fourth ventricles which is disproportionate to the m ild enlargement of the sylvian fissures. There is mild scattered white matter hypoattenuation consist ent with chronic small vessel ischemic disease. No mass/mass effect. Changes of bilateral intraocular lens replacement. Subtle calcification along the margins of a mucous retention cyst in the left maxi llary sinus. The orbits and mastoid air cells are normal. Intracranial calcified cerebral atheroscler osis is noted. IMPRESSION: 1. No acute intracranial process. 2. Chronic ventriculomegaly which could be seen with normal pressure hydrocephalus (NPH: clinical tri ad ataxia/gait disturbance, dementia, urinary incontinence) or due to central predominant cerebral vo lume loss. 2. Unchanged mild nonspecific cerebral white matter hypoattenuation consistent with chronic small ves sels can disease. Reviewed, dictated and finalized at location A. IMPRESSION: 1. No acute intracranial process. 2. Chronic ventriculomegaly which could be seen with normal pressure hydrocepha shane (NPH: clinical triad ataxia/gait disturbance, dementia, urinary incontinenc e) or due to central predominant cerebral volume loss. 2. Unchanged mild nonspecific cerebral white matter hypoattenuation consistent with chronic small vessels can disease.
--- NOTE | ~2020-03-29 | XR_ITS ---
XR chest 1V portable DATE: 03/29/2020 11:46 INDICATION: Altered mental state. History of hypertension. TECHNIQUE: Portable AP chest on 03/29/2020 at 1137 hours COMPARISON: 02/26/2020 portable AP chest FINDINGS: Borderline heart size. Aortic calcification and unfolding. No hilar or mediastinal enlargem ent is evident. No pulmonary infiltrate or consolidation, pleural effusion or pulmonary vascular congestion or pneumo thorax. Included skeletal structures are unremarkable. Status post cholecystectomy. IMPRESSION: No active cardiopulmonary disease Aortic atherosclerosis Reviewed, dictated and finalized at location A.
--- NOTE | 2020-03-29 11:01 | ECG_ITS ---
Measurements Intervals [place] Rate: 95 P: 33 OK: 127 QRS: -62 QRSD: 90 T: -70 QT: 362 QTc: 457 Interpretive Statements SINUS RHYTHM BORDERLINE R WAVE PROGRESSION, ANTERIOR LEADS INFERIOR INFARCT, AGE INDETERMINATE BORDERLINE T WAVE ABNORMALITY- ANTEROLATERAL LEADS BASELINE ARTIFACT- I, II, III, AVR, AVL, AVF, V1 ABNORMAL ECG Electronically Signed On 03-29-2020 12:30:39 CDT by Francisco Javier Hill D.O.
[2020-03-29 11:27] LABS: Basophils Percent Auto 0.2 % (0.2-1.2); Eosinophils Absolute Auto 0.1 K/mm3 (0-0.3); Eosinophils Percent Auto 2.1 % (0-4.4); Hemoglobin 11.2 g/dL (14.0-18.0); Immature Granulocyte Absolute 0.06 K/mm3 (0.00-0.031); Immature Granulocyte Percent A 1.2 % (0-0.5); Lymphocytes Absolute Auto 1.13 K/mm3 (0.9-3.2); Lymphocytes Percent Auto 21.9 % (18.3-44.2); Mean Corpuscular HGB Conc 32.9 g/dl (32-36); Mean Corpuscular Hemoglobin 26.8 pg (26-34); Mean Corpuscular Volume 81.3 fl (80-100); Mean Platelet Volume 11.1 fl (7.4-10.4); Monocytes Absolute Auto 0.5 K/mm3 (0.1-0.6); Monocytes Percent Auto 8.9 % (2.6-8.5); Neutrophils Absolute Auto 3.4 K/mm3 (1.3-6.7); Neutrophils Percent Auto 65.7 % (45.5-73.1); Platelet Count Result 282 k/mm3 (150-375); Red Blood Count 4.18 M/mm3 (4.6-6.20); Red Cell Distribution Width 13.6 % (11.5-14.5); White Blood Count 5.2 K/mm3 (4.5-10.0)
[2020-03-29 11:37] LABS: INR 0.9; Prothrombin Time 11.8 Seconds (11.1-14.7)
[2020-03-29 11:38] LABS: Partial Thromboplastin Time 33.5 SECONDS (22.3-36.8)
[2020-03-29 11:39] LABS: Lactic Acid Reflex 1.4 mmol/L (0.7-2.1)
[2020-03-29 11:39] LABS: Alanine Aminotransferase 15 U/L (4-50); Albumin Level 3.4 g/dL (3.5-5.1); Alkaline Phosphatase 75 U/L (38-126); Aspartate Amino Transferase 28 U/L (17-59); Bilirubin,Total 0.3 mg/dL (0.2-1.3); Blood Urea Nitrogen 15 mg/dL (9-20); Calcium 8.3 mg/dL (8.4-10.2); Carbon Dioxide 28 mmol/L (22-30); Chloride 91 mmol/L (98-107); Estimated Glomerular Filt Rate > 60; Glucose 186 mg/dL (75-110); Potassium 3.3 mmol/L (3.4-5.0); Sodium 129 mmol/L (137-145)
[2020-03-29] MEDS: SODIUM CHLORIDE 0.9% IV 1,000 ML 999 ML IV CONT (11:43)
--- NOTE | 2020-03-29 11:44 | ED.AMS ---
HPI - Altered Mental Status General Chief Complaint: Altered Mental Status Stated Complaint: WEAKNESS/AMS Source: RN notes reviewed History of Present Illness HPI narrative: Patient presents emergency department from assisted living via EMS for altered mental status. History is per EMS and family. The patient has had altered mental status for the past 1 week. He has been having decreased p.o. intake and decreased ambulation normally walks with a walker. The patient has also been minimally speaking over the past 2 days. Per family patient was admitted the beginning of February he had gone to jail following that and then had been returned to assisted living. No recent complaints except the patient has had diarrhea. Patient is had no known fevers or chills cough Related Data Home Medications Medication Instructions Recorded Confirmed aspirin [Aspir-81] 81 mg PO DAILY 02/04/20 02/26/20 finasteride 5 mg PO HS 02/20/20 02/26/20 levothyroxine 25 mcg PO DAILY 02/20/20 02/26/20 memantine 10 mg PO DAILY 02/20/20 02/26/20 metformin 500 mg PO BID 02/20/20 02/26/20 omeprazole 40 mg PO QPM 02/20/20 02/26/20 chlorpromazine 10 mg PO DAILY PRN 02/26/20 02/26/20 fluoxetine 40 mg PO DAILY 03/29/20 Allergies Allergy/AdvReac Type Severity Reaction Status Date / Time No Known Allergies Allergy Verified 03/29/20 11:24 Review of Systems Review of Systems: ROS unobtainable: Yes unobtainable due to medical condition PMFSH Past Medical History Medical History Anemia BPH (benign prostatic hyperplasia) Dementia Diabetes Glaucoma Hard of hearing Hiccups Chronic HLD (hyperlipidemia) HTN (hypertension) Hypothyroid Myocardial infarction Normal pressure hydrocephalus Normal pressure hydrocephalus Peripheral neuropathy Seizure Surgical History Surgical History H/O bilateral cataract extraction H/O heart artery stent History of cardiac catheterization Hx of cholecystectomy Social History Social History Social History: The patient is at [facility]. He has 3 children. The daughter in-law works here at [employer] the we department. Patient is listed as a do not resuscitate. Is reported that his power of workers compensation attorney does not want any further procedures such as a cardiac catheterization. Smoking status: Former smoker Smoking end date: 11/29/84 Alcohol intake: unknown Substance use: unknown Substance use type: does not use Gender identity (if verbalized by the patient): Male Spiritual care concerns: No Agree to blood products: Yes Exam Narrative: Exam Narrative: APPEARANCE: No acute distress, nontoxic, resting in bed EYES: PERRL HEENT: Normocephalic, atraumatic, oromucosa dry RESPIRATORY: No respiratory distress Clear to auscultation bilaterally with no rhonchi wheezing or rales. CARDIOVASCULAR: Regular rate and rhythm without murmurs rubs or gallops. ABDOMINAL: Soft, nontender, nondistended, no rebound or guarding MUSCULOSKELETAl: Moves all extremities. No clubbing, cyanosis or edema. NEURO: Awake and alert x 2. Following commands, speech normal, no focal deficits SKIN:: Warm, dry. No rashes lesions or abrasions PSYCHIATRIC: Normal affect/mood, Course Course Emergency Course: Reviewed old records. Per Dr. Joseph's last note the patient does have waxing and waning mental status Patient is able to tell me his name and that his [facility] but is unable to give any other details though when asked when he was in pain he states no Dr. Cruz presentation work-up. Agrees with consult at this time he is known to Dr. Cruz as an outpatient Discussed with PA however Dr Joseph presentation work-up he agrees admission at this time Discussed with patient and family results of workup and diagnosis. Discussed need fo
[2020-03-29 13:07] LABS: Add Urine Microscopic? YES; Appearance Urine Clear (Clear); Bacteria Urine Trace /hpf; Bilirubin Urine Negative (Negative); Blood Urine Negative (Negative); Color Urine Yellow (Yellow); Glucose Urine UA 2+ mg/dL (Negative); Ketones Urine Negative (Negative); Leukocyte Esterase Ur Negative LEU/UL (Negative); Mucus Urine Rare /lpf; Nitrate Urine Negative (Negative); Protein Urine 1+ mg/dL (Negative); RBC Urine 0-2 /hpf (0-2); Specific Grav Ur 1.023 (1.001-1.035); Urobilinogen Urine Negative mg/dL (<2.0); WBC Urine 0-3 /hpf
--- NOTE | 2020-03-29 14:45 | ADMGEN ---
This patient, Maine Baez, was admitted to Medical Room 343-01. Patient/family oriented to hospital policies and general routines including ID bracelet, bed and alarms, visiting hours, pain management, procedures, bathroom and other care routines, personal items, smoking policy, room service/diet, and visiting hours. Valuables list has been completed. Information on how to activate the Rapid Response Team has been discussed. Patient/Family are encouraged to report perceived risks to care and to ask questions if they do not understand what they are told or what they should do.
[2020-03-29] MEDS: SODIUM CHLORIDE 0.9% IV 1,000 ML 100 ML IV CONT ×2 (14:59→23:59)
[2020-03-29 16:31] LABS: Glucose Point of Care 174 (65-105)
[2020-03-29] MEDS: ONDANSETRON INJ 4 MG/2 ML VIAL IV PUSH (18:36)
[2020-03-29] MEDS: PANTOPRAZOLE SODIUM IV 40 MG VIAL IV PUSH (18:38)
[2020-03-29 18:48] LABS: Blood Urea Nitrogen 13 mg/dL (9-20); Calcium 7.9 mg/dL (8.4-10.2); Carbon Dioxide 27 mmol/L (22-30); Chloride 94 mmol/L (98-107); Estimated CRCL calculation 101 ml/min; Estimated Glomerular Filt Rate > 60; Glucose 172 mg/dL (75-110); Magnesium 1.1 mg/dL (1.6-2.3); Phosphorus 2.4 mg/dL (2.5-4.5); Potassium 3.2 mmol/L (3.4-5.0); Sodium 128 mmol/L (137-145)
--- NOTE | 2020-03-29 21:10 | PM.IMHP ---
H&P: HPI History of Present Illness Chief complaint: Confusion and weakness. Narrative: Maine Baez is a 74-year-old male with dementia, type 2 diabetes mellitus, coronary artery disease with recent [place], hypertension, hypothyroidism, and benign prostatic hyperplasia presented to the emergency department earlier today via EMS from [facility] for evaluation of increasing confusion and weakness. At the time my evaluation, the patient is alert however he does not answer any questions. As such, all of this history is obtained via a review of his electronic medical records. Service as he was admitted to us on February 26, 2020. At that time, he was initially brought in because he was shivering uncontrollably. In the emergency department, he was found to have an ST-elevation myocardial infarction, with a troponin level up to 15.6. It was decided that intervention was not warranted and his power of assistant county attorney declined further testing. Echocardiogram at that time showed ejection fraction of 52% with mild hypokinesis of the basal inferoseptal wall. He was also find to have an E coli urinary tract infection and mild rhabdomyolysis. He was discharged to a snf, but has since returned to assisted living, I believe due to improvement. Unfortunately, he has been increasingly confused over the past 1 week as well as a decrease in p.o. intake and decreased ambulation. It is my understanding that he has not been communicating much over the last 2 days either. Currently, the patient is alert but he does not speak to me. He did shake his head no when asked if he felt feverish. He also denied cold and flu symptoms, chest pain, shortness of breath, nausea, vomiting, abdominal pain, and dysuria. I was told that he had some loose stools earlier. Review of Systems Review of Systems: Narrative: Review of systems was attempted but is unreliable as the patient is not really answering questions. He did shake his head no for the questions listed in the HPI. [facility] Past Medical History Medical History (Updated 03/29/20 @ 23:15 by Kayla Quinones PA-C) Benign prostatic hyperplasia Chronic anemia Chronic hiccoughs Coronary artery disease Dementia Diabetic peripheral neuropathy Essential hypertension Glaucoma Hard of hearing Hyperlipidemia Hypothyroid Myocardial infarction Patient presented to the hospital 02/26/2020 with STEMI. Troponin jumped as high as 15.6 and echocardiogram showed an EF of 52% with mild hypokinesis of the basal inferoseptal wall. No intervention was undertaken at this time and [id number] declined further testing. He was continued on aspirin and beta-manda, but statin was held due to elevated CK. Normal pressure hydrocephalus Ventriculomegaly noted on brain CT, however I am not certain he has actually been given a diagnosis of NPH. Seizure Poorly documented. Type 2 diabetes mellitus Hemoglobin A1c was 6.8% in November 2019. Surgical History Surgical History (Updated 03/29/20 @ 20:25 by Kayla Quinones PA-C) History of cardiac catheterization History of cataract extraction History of cholecystectomy History of coronary artery stent placement Family History Family History Sibling Patient's sister is in good health Mother Patient's mother is Father Patient's father is Social History Social History (Updated 03/29/20 @ 20:26 by Kayla Quinones PA-C) Social History: The patient lives in assisted living at [facility]. He has 3 children. The patient is at [facility] speech assistant living. He has 3 children. Son-in-law, Dr. Alejandro Hardy, is his healthcare power of assistant county attorney. He wishes to be a do not resuscitate. The patient is a former smoker and quit in 1984. No alcohol or drug abuse. Smoking end date: 11/29/84 Spiritual care concerns: No Agree to blood products: Yes Meds Home Medications
[2020-03-29 21:53] LABS: Glucose Point of Care 160 (65-105)
[2020-03-29 23:50] LABS: Sodium 128 mmol/L (137-145)
[2020-03-29] MEDS: POTASSIUM CHLORIDE 20 MEQ TABLET 40 MEQ PO (23:54)
[2020-03-29] MEDS: MAGNESIUM SULF 1 GM/D5W 100 ML 1 GM/100 ML BAG IVPB (23:54)
[2020-03-30] MEDS: MAGNESIUM SULF 2 GM/WATER 50ML 2 GM/50 ML BAG IVPB (03:13)
[2020-03-30 06:00] VITALS: BP 149/64; PULSE 81; RESP 18; TEMP 36.2; O2SAT 98
[2020-03-30] MEDS: LEVOTHYROXINE SODIUM 25 MCG TABLET PO (06:17)
[2020-03-30 06:25] LABS: Basophils Percent Auto 0.2 % (0.2-1.2); Eosinophils Absolute Auto 0.1 K/mm3 (0-0.3); Eosinophils Percent Auto 2.5 % (0-4.4); Hematocrit 36.7 % (42.0-52.0); Hemoglobin 11.8 g/dL (14.0-18.0); Immature Granulocyte Absolute 0.02 K/mm3 (0.00-0.031); Immature Granulocyte Percent A 0.4 % (0-0.5); Lymphocytes Absolute Auto 1.66 K/mm3 (0.9-3.2); Lymphocytes Percent Auto 34.4 % (18.3-44.2); Mean Corpuscular HGB Conc 32.2 g/dl (32-36); Mean Corpuscular Hemoglobin 26.8 pg (26-34); Mean Corpuscular Volume 83.4 fl (80-100); Mean Platelet Volume 10.8 fl (7.4-10.4); Monocytes Absolute Auto 0.5 K/mm3 (0.1-0.6); Neutrophils Absolute Auto 2.5 K/mm3 (1.3-6.7); Neutrophils Percent Auto 52.5 % (45.5-73.1); Platelet Count Result 249 k/mm3 (150-375); Red Cell Distribution Width 13.6 % (11.5-14.5); White Blood Count 4.8 K/mm3 (4.5-10.0)
[2020-03-30 06:38] LABS: Alanine Aminotransferase 13 U/L (4-50); Albumin Level 3.2 g/dL (3.5-5.1); Alkaline Phosphatase 67 U/L (38-126); Aspartate Amino Transferase 35 U/L (17-59); Bilirubin,Total 0.4 mg/dL (0.2-1.3); Blood Urea Nitrogen 9 mg/dL (9-20); Calcium 7.8 mg/dL (8.4-10.2); Carbon Dioxide 24 mmol/L (22-30); Chloride 98 mmol/L (98-107); Estimated CRCL calculation 99 ml/min; Estimated Glomerular Filt Rate > 60; Glucose 138 mg/dL (75-110); Magnesium 2.1 mg/dL (1.6-2.3); Phosphorus 2.4 mg/dL (2.5-4.5); Potassium 3.6 mmol/L (3.4-5.0); Sodium 130 mmol/L (137-145)
[2020-03-30 07:56] LABS: Glucose Point of Care 160 (65-105)
[2020-03-30 09:18] VITALS: PULSE 78
[2020-03-30] MEDS: METOPROLOL TARTRATE 12.5 MG TABLET PO ×2 (09:18→20:11)
[2020-03-30] MEDS: FLUOXETINE HCL 20 MG CAP 40 MG PO (09:19)
[2020-03-30] MEDS: MEMANTINE 10 MG TABLET PO (09:19)
[2020-03-30] MEDS: ASPIRIN 81 MG ENTERIC TABLET PO (09:19)
[2020-03-30 11:40] LABS: Glucose Point of Care 159 (65-105)
[2020-03-30] MEDS: SODIUM CHLORIDE 0.9% IV 1,000 ML 75 ML IV CONT (13:28)
[2020-03-30 14:00] VITALS: BP 128/61; PULSE 65; RESP 12; TEMP 36.3; O2SAT 100
--- NOTE | 2020-03-30 14:39 | P.PNIM_ITS ---
Progress Note: A&P Assessment and Plan (1) Altered mental status: Code(s): R41.82 - Altered mental status, unspecified Status: Acute Assessment and Plan: At baseline, patient is alert and oriented x4, is conversational, and does ADLs independently. Head CT with no acute changes. No history or labs/imaging studies to suggest underlying infection. This may be related to his diagnosis of NPH or underlying dementia. * Neurology has been consulted and their recommendations are appreciated. * Will order MRI at request of Dr. Oropeza * Will monitor labs to assess for underlying etiology * Continue to monitor mental status (2) Dementia: Code(s): F03.90 - Unspecified dementia without behavioral disturbance Status: Acute Assessment and Plan: Patient has a history of dementia but is typically alert and oriented as above. * Continue memantine * Continue to monitor mental status (3) Normal pressure hydrocephalus: Code(s): G91.2 - (Idiopathic) normal pressure hydrocephalus Status: Acute Assessment and Plan: CT reveals chronic ventriculomegaly. Per son-in-law, he has had this diagnosis for some time and is a patient of Dr. Cruz regarding this condition. * Patient has symptoms including dementia and new urinary incontinence to suggest this may be related to new AMS. * Neurology has been consulted and recommendations are appreciated. * Patient's son-in-law reports he was previously a candidate for a MEAT INSPECTOR shunt several years ago but did not proceed as he was relatively asymptomatic. (4) Hypokalemia: Code(s): E87.6 - Hypokalemia Status: Acute Assessment and Plan: Potassium low at presentation at 3.2 and replaced. Today potassium is 3.8 * Continue to monitor potassium level (5) Hyponatremia: Code(s): E87.1 - Hypo-osmolality and hyponatremia Status: Acute Assessment and Plan: Patient appears euvolemic although history suggest that he has had poor oral intake over the past week. Sodium is 130 today. * Will continue with IV fluids for now, and monitor sodium closely. (6) Hypomagnesemia: Code(s): E83.42 - Hypomagnesemia Status: Acute Assessment and Plan: Magnesium low at presentation and replaced. Today is stable at 2.1 * Continue to monitor magnesium level. (7) Type 2 diabetes mellitus: Code(s): E11.9 - Type 2 diabetes mellitus without complications Status: Acute Assessment and Plan: Recent hemoglobin A1c was 6.8% in November 2019. Blood sugar evaluated today and stable at 138. * Will hold metformin for now given poor oral intake. * Continue sliding scale insulin, Accu-Cheks, and hypoglycemic protocol. (8) Chronic anemia: Code(s): D64.9 - Anemia, unspecified Status: Acute Assessment and Plan: Hemoglobin and hematocrit are stable on review of previous labs. Today, Hgb 11.8 and Hct 36.7 * Continue to monitor H&H (9) Hypothyroid: Qualifiers: Hypothyroidism type: unspecified Qualified Code(s): E03.9 - Hypothyroidism, unspecified Code(s): E03.9 - Hypothyroidism, unspecified Status: Chronic Assessment and Plan: TSH was within normal limits in January 2020. * Continue levothyroxine. (10) Essential hypertension: Code(s): I10 - Essential (primary) hypertension Status: Acute Assessment and Plan: Blood pressure evaluated today and stable at 149/64 * Co
--- NOTE | 2020-03-30 14:39 | PM.IMPN ---
Progress Note: A&P Assessment and Plan (1) Altered mental status: Code(s): R41.82 - Altered mental status, unspecified Status: Acute Assessment and Plan: At baseline, patient is alert and oriented x4, is conversational, and does ADLs independently. Head CT with no acute changes. No history or labs/imaging studies to suggest underlying infection. This may be related to his diagnosis of NPH or underlying dementia. Neurology has been consulted and their recommendations are appreciated. Will order MRI at request of Dr. Oropeza Will monitor labs to assess for underlying etiology Continue to monitor mental status (2) Dementia: Code(s): F03.90 - Unspecified dementia without behavioral disturbance Status: Acute Assessment and Plan: Patient has a history of dementia but is typically alert and oriented as above. Continue memantine Continue to monitor mental status (3) Normal pressure hydrocephalus: Code(s): G91.2 - (Idiopathic) normal pressure hydrocephalus Status: Acute Assessment and Plan: CT reveals chronic ventriculomegaly. Per son-in-law, he has had this diagnosis for some time and is a patient of Dr. Cruz regarding this condition. Patient has symptoms including dementia and new urinary incontinence to suggest this may be related to new AMS. Neurology has been consulted and recommendations are appreciated. Patient's son-in-law reports he was previously a candidate for a FINGERPRINT CLASSIFIER shunt several years ago but did not proceed as he was relatively asymptomatic. (4) Hypokalemia: Code(s): E87.6 - Hypokalemia Status: Acute Assessment and Plan: Potassium low at presentation at 3.2 and replaced. Today potassium is 3.8 Continue to monitor potassium level (5) Hyponatremia: Code(s): E87.1 - Hypo-osmolality and hyponatremia Status: Acute Assessment and Plan: Patient appears euvolemic although history suggest that he has had poor oral intake over the past week. Sodium is 130 today. Will continue with IV fluids for now, and monitor sodium closely. (6) Hypomagnesemia: Code(s): E83.42 - Hypomagnesemia Status: Acute Assessment and Plan: Magnesium low at presentation and replaced. Today is stable at 2.1 Continue to monitor magnesium level. (7) Type 2 diabetes mellitus: Code(s): E11.9 - Type 2 diabetes mellitus without complications Status: Acute Assessment and Plan: Recent hemoglobin A1c was 6.8% in November 2019. Blood sugar evaluated today and stable at 138. Will hold metformin for now given poor oral intake. Continue sliding scale insulin, Accu-Cheks, and hypoglycemic protocol. (8) Chronic anemia: Code(s): D64.9 - Anemia, unspecified Status: Acute Assessment and Plan: Hemoglobin and hematocrit are stable on review of previous labs. Today, Hgb 11.8 and Hct 36.7 Continue to monitor H&H (9) Hypothyroid: Qualifiers: Hypothyroidism type: unspecified Qualified Code(s): E03.9 - Hypothyroidism, unspecified Code(s): E03.9 - Hypothyroidism, unspecified Status: Chronic Assessment and Plan: TSH was within normal limits in January 2020. Continue levothyroxine. (10) Essential hypertension: Code(s): I10 - Essential (primary) hypertension Status: Acute Assessment and Plan: Blood pressure evaluated today and stable at 149/64 Continue metoprolol Continue to monitor blood pressure Subjective Date/time seen: 03/30/20 14:39 Interval history: Is seen today is still rather non-conversive. He is able to verbally answer some of my questions, but not all. He tells me his name, and after some prompting he is able to tell me we are at [facility] but does not know the town. He tells me we are in [place]. He tells me the year is 20, but not the month or day. He states the president. He is
[2020-03-30 16:38] LABS: Glucose Point of Care 143 (65-105)
--- NOTE | 2020-03-30 17:09 | WPDNEURCNPN ---
Assessment and Plan Assessment and plan (1) Essential hypertension: Code(s): I10 - Essential (primary) hypertension Status: Acute (2) Normal pressure hydrocephalus: Code(s): G91.2 - (Idiopathic) normal pressure hydrocephalus Status: Acute (3) Chronic anemia: Code(s): D64.9 - Anemia, unspecified Status: Acute (4) Type 2 diabetes mellitus: Code(s): E11.9 - Type 2 diabetes mellitus without complications Status: Acute (5) Hyponatremia: Code(s): E87.1 - Hypo-osmolality and hyponatremia Status: Acute (6) Hypomagnesemia: Code(s): E83.42 - Hypomagnesemia Status: Acute (7) Hypokalemia: Code(s): E87.6 - Hypokalemia Status: Acute (8) Altered mental status: Code(s): R41.82 - Altered mental status, unspecified Status: Acute (9) Dementia: Code(s): F03.90 - Unspecified dementia without behavioral disturbance Status: Acute (10) Encephalopathy: Code(s): G93.40 - Encephalopathy, unspecified Status: Acute (11) Dementia: Qualifiers: Dementia type: unspecified type Dementia behavioral disturbance: with behavioral disturbance Qualified Code(s): F03.91 - Unspecified dementia with behavioral disturbance Code(s): F03.90 - Unspecified dementia without behavioral disturbance Status: Chronic (12) BPH (benign prostatic hyperplasia): Qualifiers: Lower urinary tract symptom presence: unspecified whether lower urinary tract symptoms present Qualified Code(s): N40.0 - Benign prostatic hyperplasia without lower urinary tract symptoms Code(s): N40.0 - Benign prostatic hyperplasia without lower urinary tract symptoms Status: Chronic (13) Hypothyroid: Qualifiers: Hypothyroidism type: unspecified Qualified Code(s): E03.9 - Hypothyroidism, unspecified Code(s): E03.9 - Hypothyroidism, unspecified Status: Chronic Additional Plan knowing him I will order brain MRI with and without contrast to make sure he does not have any cortical infarct responsible for initial presentation of inability to talk and eat which is doing right now quite well he clearly does have underlying dementia and gait disorder he is not sure whether he wants to go through the spinal tap and he would like me to talk to son-in-law which I will do based on the MRI findings and the son-in-law and the daughter who most likely has the power of county attorney we will proceed accordingly in the meantime present management needs to be continue Consult date: 03/30/20 Time Seen: 16:30 HPI: [place] Baez is a 74 year old male with whom I am familiar with was admitted because of poor appetite and also inability to talk and the family was concerned that did have a stroke the CT brain is negative however he did have some metabolic abnormalities he denies any headache nausea vomiting chest pain shortness of breath fever chills or sore throat It is worth mentioning the CT brain does show chronic ventriculomegaly and the question of NPH which has been raise repeatedly however it seems like it has been stable the son-in-law was concerned that we should do a therapeutic tap for which most of the son is not ready and I would discussed this with the son-in-law because seems like he is much more awake alert and well oriented of course he does have a short-term memory dense deficit gait disorder and evidence of dementia Review of Systems Review of Systems: All systems reviewed & are unremarkable except as noted in HPI and below PMFSH Past Medical History Medical History Benign prostatic hyperplasia Chronic anemia Chronic hiccoughs Coronary artery disease Dementia Diabetic peripheral neuropathy Essential hypertension Glaucoma Hard of hearing Hyperlipidemia Hypothyroid Myocardial infarction Patient presented to the hospital 02/26/2020 with STEMI. Troponin jumped as
[2020-03-30] MEDS: PANTOPRAZOLE 40 MG TABLET PO (18:11)
[2020-03-30 20:11] VITALS: PULSE 68
[2020-03-30] MEDS: FINASTERIDE 5 MG TABLET PO (20:11)
[2020-03-30 20:26] LABS: Glucose Point of Care 195 (65-105)
[2020-03-30 21:20] VITALS: BP 133/57; PULSE 78; RESP 18; TEMP 36.2; O2SAT 100
[2020-03-31] VITALS (10 sets, daily range): BP systolic 128–148; BP diastolic 63–72; PULSE 72–80; RESP 18–22; TEMP 36.4–36.8; O2SAT 97–100
[2020-03-31] MEDS: SODIUM CHLORIDE 0.9% IV 1,000 ML 75 ML IV CONT (02:45)
[2020-03-31 05:34] LABS: Hematocrit 30.4 % (42.0-52.0); Mean Corpuscular HGB Conc 32.9 g/dl (32-36); Mean Corpuscular Hemoglobin 26.7 pg (26-34); Mean Corpuscular Volume 81.1 fl (80-100); Mean Platelet Volume 10.7 fl (7.4-10.4); Platelet Count Result 237 k/mm3 (150-375); Red Blood Count 3.75 M/mm3 (4.6-6.20); Red Cell Distribution Width 13.7 % (11.5-14.5); White Blood Count 5.3 K/mm3 (4.5-10.0)
[2020-03-31 05:50] LABS: Alanine Aminotransferase 12 U/L (4-50); Albumin Level 2.9 g/dL (3.5-5.1); Alkaline Phosphatase 60 U/L (38-126); Aspartate Amino Transferase 28 U/L (17-59); Bilirubin,Total 0.4 mg/dL (0.2-1.3); Blood Urea Nitrogen 8 mg/dL (9-20); Calcium 7.1 mg/dL (8.4-10.2); Carbon Dioxide 24 mmol/L (22-30); Chloride 99 mmol/L (98-107); Estimated CRCL calculation 120 ml/min; Estimated Glomerular Filt Rate > 60; Glucose 143 mg/dL (75-110); Potassium 3.7 mmol/L (3.4-5.0); Sodium 127 mmol/L (137-145)
[2020-03-31] MEDS: LEVOTHYROXINE SODIUM 25 MCG TABLET PO (06:23)
[2020-03-31 08:12] LABS: Glucose Point of Care 149 (65-105)
[2020-03-31] MEDS: FLUOXETINE HCL 20 MG CAP 40 MG PO (08:31)
[2020-03-31] MEDS: ASPIRIN 81 MG ENTERIC TABLET PO (08:31)
[2020-03-31] MEDS: MEMANTINE 10 MG TABLET PO (08:32)
[2020-03-31] MEDS: METOPROLOL TARTRATE 12.5 MG TABLET PO ×2 (08:33→21:06)
[2020-03-31 10:21] LABS: Sodium 126 mmol/L (137-145)
[2020-03-31 12:49] LABS: Glucose Point of Care 174 (65-105)
[2020-03-31 13:23] LABS: Creatinine Urine 81.7 mg/dL
--- NOTE | 2020-03-31 15:50 | P.PNIM_ITS ---
Progress Note: A&P Assessment and Plan (1) Altered mental status: Code(s): R41.82 - Altered mental status, unspecified Status: Acute Assessment and Plan: At baseline, patient is alert and oriented x4, is conversational, and does ADLs independently. Head CT with no acute changes. No history or labs/imaging studies to suggest underlying infection. This may be related to his diagnosis of NPH or underlying dementia. * He is alert and oriented only to himself today * Neurology has been consulted and their recommendations are appreciated. * MRI reveals stable chronic ventriculomegaly and chronic atrial lead finding * Will monitor labs to assess for underlying etiology * Continue to monitor mental status (2) Dementia: Code(s): F03.90 - Unspecified dementia without behavioral disturbance Status: Acute Assessment and Plan: Patient has a history of dementia but is typically alert and oriented as above. * Continue memantine * Continue to monitor mental status. Oriented to self only today. (3) Normal pressure hydrocephalus: Code(s): G91.2 - (Idiopathic) normal pressure hydrocephalus Status: Acute Assessment and Plan: CT and MRI reveal chronic ventriculomegaly. Per son-in-law, he has had this diagnosis for some time and is a patient of Dr. Cruz regarding this condition. * Patient has symptoms including dementia and new urinary incontinence to suggest this may be related to new AMS. * Neurology has been consulted and recommendations are appreciated. * Patient's son-in-law reports he was previously a candidate for a HUMAN RESOURCES BENEFITS COORDINATOR shunt several years ago but did not proceed as he was relatively asymptomatic. * Possible therapeutic lumbar puncture tomorrow (4) Hypokalemia: Code(s): E87.6 - Hypokalemia Status: Acute Assessment and Plan: Potassium low at presentation at 3.2 and replaced. Today potassium is 3.7 * Continue to monitor potassium level (5) Hyponatremia: Code(s): E87.1 - Hypo-osmolality and hyponatremia Status: Acute Assessment and Plan: Patient appears euvolemic although history suggest that he has had poor oral intake over the past week. Sodium is 127 today. * Will continue with IV fluids for now, and monitor sodium closely. * Obtain urine random sodium and random creatinine. * Will obtain random cortisol level. * This may be SIADH related to ventriculomegaly. May be related to chronic fluoxetine use (6) Hypomagnesemia: Code(s): E83.42 - Hypomagnesemia Status: Acute Assessment and Plan: Magnesium low at presentation and replaced. * Continue to monitor magnesium level. (7) Type 2 diabetes mellitus: Code(s): E11.9 - Type 2 diabetes mellitus without complications Status: Acute Assessment and Plan: Recent hemoglobin A1c was 6.8% in November 2019. Blood sugar evaluated today and stable at 143 * Will hold metformin for now given poor oral intake. * Continue sliding scale insulin, Accu-Cheks, and hypoglycemic protocol. (8) Chronic anemia: Code(s): D64.9 - Anemia, unspecified Status: Acute Assessment and Plan: Hemoglobin and hematocrit are stable on review of previous labs. Today, Hgb 10.0 and Hct 30.4 * Continue to monitor H&H (9) Hypothyroid: Qualifiers: Hypothyroidism type: unspecified Qualified Code(s): E03.9 - Hypothyroidism, unspecified Code(s): E03.9 - Hypothyroidism, unspecified Status: Chroni
--- NOTE | 2020-03-31 15:50 | PM.IMPN ---
Progress Note: A&P Assessment and Plan (1) Altered mental status: Code(s): R41.82 - Altered mental status, unspecified Status: Acute Assessment and Plan: At baseline, patient is alert and oriented x4, is conversational, and does ADLs independently. Head CT with no acute changes. No history or labs/imaging studies to suggest underlying infection. This may be related to his diagnosis of NPH or underlying dementia. He is alert and oriented only to himself today Neurology has been consulted and their recommendations are appreciated. MRI reveals stable chronic ventriculomegaly and chronic atrial lead finding Will monitor labs to assess for underlying etiology Continue to monitor mental status (2) Dementia: Code(s): F03.90 - Unspecified dementia without behavioral disturbance Status: Acute Assessment and Plan: Patient has a history of dementia but is typically alert and oriented as above. Continue memantine Continue to monitor mental status. Oriented to self only today. (3) Normal pressure hydrocephalus: Code(s): G91.2 - (Idiopathic) normal pressure hydrocephalus Status: Acute Assessment and Plan: CT and MRI reveal chronic ventriculomegaly. Per son-in-law, he has had this diagnosis for some time and is a patient of Dr. Cruz regarding this condition. Patient has symptoms including dementia and new urinary incontinence to suggest this may be related to new AMS. Neurology has been consulted and recommendations are appreciated. Patient's son-in-law reports he was previously a candidate for a ROTOR BALANCER shunt several years ago but did not proceed as he was relatively asymptomatic. Possible therapeutic lumbar puncture tomorrow (4) Hypokalemia: Code(s): E87.6 - Hypokalemia Status: Acute Assessment and Plan: Potassium low at presentation at 3.2 and replaced. Today potassium is 3.7 Continue to monitor potassium level (5) Hyponatremia: Code(s): E87.1 - Hypo-osmolality and hyponatremia Status: Acute Assessment and Plan: Patient appears euvolemic although history suggest that he has had poor oral intake over the past week. Sodium is 127 today. Will continue with IV fluids for now, and monitor sodium closely. Obtain urine random sodium and random creatinine. Will obtain random cortisol level. This may be SIADH related to ventriculomegaly. May be related to chronic fluoxetine use (6) Hypomagnesemia: Code(s): E83.42 - Hypomagnesemia Status: Acute Assessment and Plan: Magnesium low at presentation and replaced. Continue to monitor magnesium level. (7) Type 2 diabetes mellitus: Code(s): E11.9 - Type 2 diabetes mellitus without complications Status: Acute Assessment and Plan: Recent hemoglobin A1c was 6.8% in November 2019. Blood sugar evaluated today and stable at 143 Will hold metformin for now given poor oral intake. Continue sliding scale insulin, Accu-Cheks, and hypoglycemic protocol. (8) Chronic anemia: Code(s): D64.9 - Anemia, unspecified Status: Acute Assessment and Plan: Hemoglobin and hematocrit are stable on review of previous labs. Today, Hgb 10.0 and Hct 30.4 Continue to monitor H&H (9) Hypothyroid: Qualifiers: Hypothyroidism type: unspecified Qualified Code(s): E03.9 - Hypothyroidism, unspecified Code(s): E03.9 - Hypothyroidism, unspecified Status: Chronic Assessment and Plan: TSH was within normal limits in January 2020. Continue levothyroxine. (10) Essential hypertension: Code(s): I10 - Essential (primary) hypertension Status: Acute Assessment and Plan: Blood pressure evaluated today and stable at 142/63 Continue metoprolol Continue to monitor blood pressure (11) Gait instability: Code(s): R26.81 - Unsteadiness on feet Status: Acute
--- NOTE | 2020-03-31 16:30 | PC.NURSE ---
Patient's blood sugar was 226, but patient is being transported to radiology for a lumbar puncture. Will recheck patient's blood sugar when he returns from radiology.
[2020-03-31 16:35] LABS: Glucose Point of Care 226 (65-105)
--- NOTE | 2020-03-31 16:38 | WPDNEUROPN ---
Progress Note: A&P Assessment and Plan (1) Gait instability: Code(s): R26.81 - Unsteadiness on feet Status: Acute (2) Essential hypertension: Code(s): I10 - Essential (primary) hypertension Status: Acute (3) Normal pressure hydrocephalus: Code(s): G91.2 - (Idiopathic) normal pressure hydrocephalus Status: Acute (4) Chronic anemia: Code(s): D64.9 - Anemia, unspecified Status: Acute (5) Type 2 diabetes mellitus: Code(s): E11.9 - Type 2 diabetes mellitus without complications Status: Acute (6) Hyponatremia: Code(s): E87.1 - Hypo-osmolality and hyponatremia Status: Acute (7) Dementia: Code(s): F03.90 - Unspecified dementia without behavioral disturbance Status: Acute (8) BPH (benign prostatic hyperplasia): Qualifiers: Lower urinary tract symptom presence: unspecified whether lower urinary tract symptoms present Qualified Code(s): N40.0 - Benign prostatic hyperplasia without lower urinary tract symptoms Code(s): N40.0 - Benign prostatic hyperplasia without lower urinary tract symptoms Status: Chronic Additional Plan I have discussed the case with the neuroradiologist for and he has reviewed the MRI the findings could very well be consistent with the NPH and after the consent has been obtained the patient will go to the therapeutic spinal tap roughly I have requested from the radiologist to draw 30 to 50 cubic centimeters of fluid and we will reassess and may be to follow-up a post spinal tap he will be a good candidate for T Review of Systems Review of Systems: All systems reviewed & are unremarkable except as noted in HPI and below Exam Const: General: comfortable and no acute distress HENMT: General nose exam: Normal nares present Mouth: Yes moist mucous membranes Eyes: General: appearance normal, both eyes and all related structures Neck: Neck: supple and no JVD Resp: Effort & Inspection: normal respiratory effort Auscultation: clear to auscultation bilaterally Cardio: Rate: regular rate Rhythm: regular rhythm GI: Auscultation: normal bowel sounds Skin: General skin exam: normal color and no rashes or lesions noted Neuro: Other: patient is awake and alert does have signs of dementia he is oriented x3 slow relatively abulic which is not much changed since I last examined him overall his roughly about the same of course he has progressed from the last time I saw him and he was in the acute rehab floor sometime ago as for as the cognitive decline is concerned likewise his gait difficulties were he is needing significant assistance with gait disorder and needs to be encouraged and use walker he agrees for the spinal tap as the [id number] his daughter wishes Extrem: General: normal to inspection Psych: Other: patient has moderate dementia and slow delayed responses however they are relatively appropriate Objective Data Vital Signs Vital Signs: Vital Signs - 24 hr 03/30/20 20:11 03/30/20 21:20 03/31/20 05:01 Temperature 36.2 C L 36.4 C Pulse Rate 68 78 77 Respiratory Rate 18 18 Blood Pressure 133/57 L 128/69 Pulse Oximetry 100 98 03/31/20 08:33 03/31/20 08:34 03/31/20 14:00 Temperature 36.5 C Pulse Rate 77 77 72 Respiratory Rate 22 H Blood Pressure 142/63 H 142/68 H Pulse Oximetry 100 Intake/Output Intake/Output: Intake & Output 03/28/20 03/29/20 03/30/20 03/31/20 23:59 23:59 23:59 23:59 Intake Total 1999 2428 1810 Output Total 100 280 Balance 1900 2428 1530 Meds/Results Medications: Active Medications Generic Name Dose Route Start Last Admin Trade Name Freq PRN Reason Stop Dose Admin Aspirin 81 mg 03/30/20 09:00 03/31/20 08:31 Aspirin Ec PO 81 mg DAILY USAMA Administration Benzocaine 1 applic 03/31/20 15:49 Anbesol Maximum Strength Gel BY MOUTH QID PRN Oral Pain Chlorpromazine HCl 10 mg 03/29/20 23:22 Th
--- NOTE | 2020-03-31 17:00 | PC.NURSE ---
Patient to radiology for lumbar puncture.
--- NOTE | 2020-03-31 18:20 | PC.NURSE ---
Patient returned from Radiology.
[2020-03-31] MEDS: PANTOPRAZOLE 40 MG TABLET PO (18:25)
[2020-03-31 18:35] LABS: Glucose Point of Care 185 (65-105)
[2020-03-31 18:41] LABS: Glucose CSF 101 mg/dL (40-70); Total Protein CSF 58 mg/dL (12-60)
[2020-03-31 19:12] LABS: Appearance CSF Clear (Clear); CSF source CSF; Color CSF Colorless (Colorless); Nucleated Cell CSF 3 /uL (0-5); Red Blood Cell CSF 95 (0-2)
[2020-03-31 19:13] LABS: Lymphocytes CSF 50 % (40-80); Monocytes CSF 50 % (15-45)
--- NOTE | 2020-03-31 19:20 | PC.NURSE ---
CSF gram stain results received from lab. Pepper RN is going to notify Dr. Pratt of results.
[2020-03-31] MEDS: FINASTERIDE 5 MG TABLET PO (21:06)
[2020-03-31 21:13] LABS: Sodium 127 mmol/L (137-145)
[2020-03-31 22:10] LABS: Glucose Point of Care 222 (65-105)
[2020-04-01] MEDS: LEVOTHYROXINE SODIUM 25 MCG TABLET PO (05:21)
[2020-04-01 05:43] LABS: Basophils Percent Auto 0.2 % (0.2-1.2); Eosinophils Absolute Auto 0.1 K/mm3 (0-0.3); Eosinophils Percent Auto 1.2 % (0-4.4); Hematocrit 29.4 % (42.0-52.0); Hemoglobin 9.7 g/dL (14.0-18.0); Immature Granulocyte Absolute 0.03 K/mm3 (0.00-0.031); Immature Granulocyte Percent A 0.5 % (0-0.5); Lymphocytes Absolute Auto 0.93 K/mm3 (0.9-3.2); Lymphocytes Percent Auto 15.5 % (18.3-44.2); Mean Corpuscular Hemoglobin 26.4 pg (26-34); Mean Corpuscular Volume 80.1 fl (80-100); Mean Platelet Volume 10.7 fl (7.4-10.4); Monocytes Absolute Auto 0.3 K/mm3 (0.1-0.6); Monocytes Percent Auto 4.3 % (2.6-8.5); Neutrophils Absolute Auto 4.7 K/mm3 (1.3-6.7); Neutrophils Percent Auto 78.3 % (45.5-73.1); Platelet Count Result 223 k/mm3 (150-375); Red Blood Count 3.67 M/mm3 (4.6-6.20); Red Cell Distribution Width 13.4 % (11.5-14.5)
[2020-04-01 05:54] LABS: Alanine Aminotransferase 11 U/L (4-50); Albumin Level 2.8 g/dL (3.5-5.1); Alkaline Phosphatase 80 U/L (38-126); Aspartate Amino Transferase 21 U/L (17-59); Bilirubin,Total 0.3 mg/dL (0.2-1.3); Blood Urea Nitrogen 11 mg/dL (9-20); Calcium 7.4 mg/dL (8.4-10.2); Carbon Dioxide 25 mmol/L (22-30); Chloride 98 mmol/L (98-107); Estimated CRCL calculation 106 ml/min; Estimated Glomerular Filt Rate > 60; Glucose 150 mg/dL (75-110); Magnesium 1.5 mg/dL (1.6-2.3); Potassium 3.6 mmol/L (3.4-5.0); Sodium 129 mmol/L (137-145)
[2020-04-01 06:00] VITALS: BP 129/87; PULSE 83; RESP 21; TEMP 36.3; O2SAT 100
[2020-04-01 07:55] LABS: Glucose Point of Care 119 (65-105)
[2020-04-01 08:40] VITALS: PULSE 80
[2020-04-01] MEDS: METOPROLOL TARTRATE 12.5 MG TABLET PO ×2 (08:40→20:56)
[2020-04-01] MEDS: MEMANTINE 10 MG TABLET PO (08:40)
[2020-04-01] MEDS: FLUOXETINE HCL 20 MG CAP 40 MG PO (08:40)
[2020-04-01] MEDS: ASPIRIN 81 MG ENTERIC TABLET PO (08:40)
[2020-04-01 09:10] VITALS: BMI 11.0
[2020-04-01 09:11] VITALS: BMI 11.0
[2020-04-01] MEDS: MAGNESIUM OXIDE 200 MG TABLET PO ×2 (10:12→20:57)
--- NOTE | 2020-04-01 10:22 | WPDNEUROPN ---
Progress Note: A&P Assessment and Plan (1) Gait instability: Code(s): R26.81 - Unsteadiness on feet Status: Acute (2) Essential hypertension: Code(s): I10 - Essential (primary) hypertension Status: Acute (3) Normal pressure hydrocephalus: Code(s): G91.2 - (Idiopathic) normal pressure hydrocephalus Status: Acute (4) Chronic anemia: Code(s): D64.9 - Anemia, unspecified Status: Acute (5) Type 2 diabetes mellitus: Code(s): E11.9 - Type 2 diabetes mellitus without complications Status: Acute (6) Hypomagnesemia: Code(s): E83.42 - Hypomagnesemia Status: Acute (7) Hyponatremia: Code(s): E87.1 - Hypo-osmolality and hyponatremia Status: Acute (8) Hypokalemia: Code(s): E87.6 - Hypokalemia Status: Acute (9) Altered mental status: Code(s): R41.82 - Altered mental status, unspecified Status: Acute (10) Dementia: Code(s): F03.90 - Unspecified dementia without behavioral disturbance Status: Acute (11) Rhabdomyolysis: Qualifiers: Rhabdomyolysis type: non-traumatic Qualified Code(s): M62.82 - Rhabdomyolysis Code(s): M62.82 - Rhabdomyolysis Status: Acute (12) Encephalopathy: Code(s): G93.40 - Encephalopathy, unspecified Status: Acute (13) Shivering: Code(s): R68.83 - Chills (without fever) Status: Acute (14) BPH (benign prostatic hyperplasia): Qualifiers: Lower urinary tract symptom presence: unspecified whether lower urinary tract symptoms present Qualified Code(s): N40.0 - Benign prostatic hyperplasia without lower urinary tract symptoms Code(s): N40.0 - Benign prostatic hyperplasia without lower urinary tract symptoms Status: Chronic (15) Diabetes: Qualifiers: Diabetes mellitus type: type 2 Diabetes mellitus terminal worker insulin use: without terminal worker use Diabetes mellitus complication status: without complication Qualified Code(s): E11.9 - Type 2 diabetes mellitus without complications Code(s): E11.9 - Type 2 diabetes mellitus without complications Status: Chronic (16) Glaucoma: Code(s): H40.9 - Unspecified glaucoma Status: Chronic (17) Hypothyroid: Qualifiers: Hypothyroidism type: unspecified Qualified Code(s): E03.9 - Hypothyroidism, unspecified Code(s): E03.9 - Hypothyroidism, unspecified Status: Chronic (18) ST elevation myocardial infarction (STEMI): Qualifiers: Involved coronary artery: unspecified coronary artery Qualified Code(s): I21.3 - ST elevation (STEMI) myocardial infarction of unspecified site Code(s): I21.3 - ST elevation (STEMI) myocardial infarction of unspecified site Status: Acute Additional Plan stable question spinal tap Exam Const: General: comfortable and no acute distress Nutritional Appearance: average body habitus HENMT: Head: normal to inspection General nose exam: Normal external nose present, Normal nares present and No nasal discharge present Face and sinus: normal facial exam Eyes: General: appearance normal, both eyes and all related structures Periorbital: periorbital findings normal Conjunctivae: conjunctivae normal Cornea: corneas normal Pupils: Equal, round and reactive pupils present EOM: EOMs intact bilaterally Neck: Neck: full ROM Resp: Auscultation: clear to auscultation bilaterally Cardio: Rate: regular rate Rhythm: regular rhythm GI: Auscultation: normal bowel sounds Skin: General skin exam: no rashes or lesions noted Neuro: General: moves all extremities and no focal motor deficits Cranial nerves: Yes CN's II-XII intact bilaterally, Yes Equal, round and reactive pupils present, Yes Nystagmus not present, Yes Normal facial strength present and Yes Ability to bilaterally rotate head present Cognition (Neuro): abnormal cognition Speech: Abnormal speech present Gait exa
[2020-04-01 11:33] LABS: Glucose Point of Care 162 (65-105)
--- NOTE | 2020-04-01 15:08 | P.PNIM_ITS ---
Progress Note: A&P Assessment and Plan (1) Altered mental status: Code(s): R41.82 - Altered mental status, unspecified Status: Acute Assessment and Plan: At baseline, patient is alert and oriented x4, is conversational, and does ADLs independently, per son-in-law. Head CT with no acute changes. No history or labs/imaging studies to suggest underlying infection, and blood cultures reveal NGTD. This is likely related to his chronic dementia. * He does not answer any questions today in order to evaluate his orientation. Previously oriented to self. * Neurology has been consulted and their recommendations are appreciated. * MRI reveals stable chronic ventriculomegaly and chronic atrial lead finding * Will monitor labs to assess for underlying etiology * Continue to monitor mental status (2) Dementia: Code(s): F03.90 - Unspecified dementia without behavioral disturbance Status: Acute Assessment and Plan: Patient has a history of dementia but is typically alert and oriented as above. * Continue memantine * Continue to monitor mental status. Nonresponsive to orientation questions today. (3) Normal pressure hydrocephalus: Code(s): G91.2 - (Idiopathic) normal pressure hydrocephalus Status: Acute Assessment and Plan: CT and MRI reveal chronic ventriculomegaly. Per son-in-law, he has had this diagnosis for some time and is a patient of Dr. Cruz regarding this condition. * Patient has symptoms including dementia and new urinary incontinence to suggest NPH may be contributing to worsened AMS. * Neurology has been consulted and recommendations are appreciated. * Patient's son-in-law reports he was previously a candidate for a LADIES' HAT TRIMMER shunt several years ago but did not proceed as he was relatively asymptomatic. * Underwent therapeutic lumbar puncture on 03/31/2020 yielding 30 mL colorless fluid. * CSF revealing opening pressure 16 cm, elevated RBC, elevated monocytes, and elevated glucose. Protein normal. Cryptococcus pending. CSF culture with no organisms seen. (4) Hypokalemia: Code(s): E87.6 - Hypokalemia Status: Acute Assessment and Plan: Potassium low at presentation at 3.2 and replaced. Today potassium is 3.6 * Continue to monitor potassium level (5) Hyponatremia: Code(s): E87.1 - Hypo-osmolality and hyponatremia Status: Acute Assessment and Plan: Patient appears euvolemic although history suggest that he has had poor oral intake over the past week. Sodium has increased to 129 today from 127 yesterday. * Discontinue IV fluids. * Urine random sodium and urine osmolality ordered. Need to be collected. * Random cortisol is wnl. TSH wnl * This may be SIADH related to ventriculomegaly. Additionally, may be related to chronic fluoxetine use (6) Hypomagnesemia: Code(s): E83.42 - Hypomagnesemia Status: Acute Assessment and Plan: Magnesium low at presentation and replaced. Today, magnesium is 1.5. * Replace with magnesium oxide. * Continue to monitor magnesium level. (7) Type 2 diabetes mellitus: Code(s): E11.9 - Type 2 diabetes mellitus without complications Status: Acute Assessment and Plan: Recent hemoglobin A1c was 6.8% in November 2019. Blood sugar evaluated today and stable at 119 * Will hold metformin for now given poor oral intake. * Continue sliding scale insulin, Accu-Cheks, and hypoglycemic protocol. (8) Chronic anemia: Code(s): D64.9 - Anemia, unspecifi
--- NOTE | 2020-04-01 15:08 | PM.IMPN ---
Progress Note: A&P Assessment and Plan (1) Altered mental status: Code(s): R41.82 - Altered mental status, unspecified Status: Acute Assessment and Plan: At baseline, patient is alert and oriented x4, is conversational, and does ADLs independently, per son-in-law. Head CT with no acute changes. No history or labs/imaging studies to suggest underlying infection, and blood cultures reveal NGTD. This is likely related to his chronic dementia. He does not answer any questions today in order to evaluate his orientation. Previously oriented to self. Neurology has been consulted and their recommendations are appreciated. MRI reveals stable chronic ventriculomegaly and chronic atrial lead finding Will monitor labs to assess for underlying etiology Continue to monitor mental status (2) Dementia: Code(s): F03.90 - Unspecified dementia without behavioral disturbance Status: Acute Assessment and Plan: Patient has a history of dementia but is typically alert and oriented as above. Continue memantine Continue to monitor mental status. Nonresponsive to orientation questions today. (3) Normal pressure hydrocephalus: Code(s): G91.2 - (Idiopathic) normal pressure hydrocephalus Status: Acute Assessment and Plan: CT and MRI reveal chronic ventriculomegaly. Per son-in-law, he has had this diagnosis for some time and is a patient of Dr. Cruz regarding this condition. Patient has symptoms including dementia and new urinary incontinence to suggest NPH may be contributing to worsened AMS. Neurology has been consulted and recommendations are appreciated. Patient's son-in-law reports he was previously a candidate for a DIRECTOR BUSINESS SYSTEMS shunt several years ago but did not proceed as he was relatively asymptomatic. Underwent therapeutic lumbar puncture on 03/31/2020 yielding 30 mL colorless fluid. CSF revealing opening pressure 16 cm, elevated RBC, elevated monocytes, and elevated glucose. Protein normal. Cryptococcus pending. CSF culture with no organisms seen. (4) Hypokalemia: Code(s): E87.6 - Hypokalemia Status: Acute Assessment and Plan: Potassium low at presentation at 3.2 and replaced. Today potassium is 3.6 Continue to monitor potassium level (5) Hyponatremia: Code(s): E87.1 - Hypo-osmolality and hyponatremia Status: Acute Assessment and Plan: Patient appears euvolemic although history suggest that he has had poor oral intake over the past week. Sodium has increased to 129 today from 127 yesterday. Discontinue IV fluids. Urine random sodium and urine osmolality ordered. Need to be collected. Random cortisol is wnl. TSH wnl This may be SIADH related to ventriculomegaly. Additionally, may be related to chronic fluoxetine use (6) Hypomagnesemia: Code(s): E83.42 - Hypomagnesemia Status: Acute Assessment and Plan: Magnesium low at presentation and replaced. Today, magnesium is 1.5. Replace with magnesium oxide. Continue to monitor magnesium level. (7) Type 2 diabetes mellitus: Code(s): E11.9 - Type 2 diabetes mellitus without complications Status: Acute Assessment and Plan: Recent hemoglobin A1c was 6.8% in November 2019. Blood sugar evaluated today and stable at 119 Will hold metformin for now given poor oral intake. Continue sliding scale insulin, Accu-Cheks, and hypoglycemic protocol. (8) Chronic anemia: Code(s): D64.9 - Anemia, unspecified Status: Acute Assessment and Plan: Hemoglobin and hematocrit are stable on review of previous labs. Today, Hgb 9.7 and Hct 29. Continue to monitor H&H (9) Hypothyroid: Qualifiers: Hypothyroidism type: unspecified Qualified Code(s): E03.9 - Hypothyroidism, unspecified Code(s): E03.9 - Hypothyroidism, unspecified Status: Chronic Assessment and Plan: TSH was within normal limi
[2020-04-01 16:06] VITALS: BP 137/61; PULSE 72; RESP 12; TEMP 36.8; O2SAT 98
[2020-04-01] MEDS: PANTOPRAZOLE 40 MG TABLET PO (16:44)
[2020-04-01 16:47] LABS: Glucose Point of Care 136 (65-105)
[2020-04-01 18:18] LABS: Sodium Urine Random 271 meq/L
[2020-04-01 20:26] VITALS: BP 142/67; PULSE 83; RESP 12; TEMP 36.8; O2SAT 99
[2020-04-01 20:56] VITALS: PULSE 82
[2020-04-01] MEDS: FINASTERIDE 5 MG TABLET PO (20:56)
[2020-04-01 21:05] LABS: Glucose Point of Care 264 (65-105)
[2020-04-02 05:41] VITALS: BP 142/76; PULSE 81; RESP 16; TEMP 36.9; O2SAT 98
[2020-04-02] MEDS: LEVOTHYROXINE SODIUM 25 MCG TABLET PO (05:41)
[2020-04-02 05:45] LABS: Hematocrit 30.5 % (42.0-52.0); Hemoglobin 10.1 g/dL (14.0-18.0); Mean Corpuscular HGB Conc 33.1 g/dl (32-36); Mean Corpuscular Hemoglobin 26.5 pg (26-34); Mean Corpuscular Volume 80.1 fl (80-100); Mean Platelet Volume 11.6 fl (7.4-10.4); Platelet Count Result 226 k/mm3 (150-375); Red Blood Count 3.81 M/mm3 (4.6-6.20); Red Cell Distribution Width 13.8 % (11.5-14.5); White Blood Count 7.1 K/mm3 (4.5-10.0)
[2020-04-02 06:02] LABS: Alanine Aminotransferase 10 U/L (4-50); Alkaline Phosphatase 69 U/L (38-126); Aspartate Amino Transferase 20 U/L (17-59); Bilirubin,Total 0.4 mg/dL (0.2-1.3); Blood Urea Nitrogen 14 mg/dL (9-20); Calcium 7.9 mg/dL (8.4-10.2); Carbon Dioxide 24 mmol/L (22-30); Chloride 96 mmol/L (98-107); Estimated CRCL calculation 100 ml/min; Estimated Glomerular Filt Rate > 60; Glucose 157 mg/dL (75-110); Magnesium 1.5 mg/dL (1.6-2.3); Potassium 3.7 mmol/L (3.4-5.0); Sodium 125 mmol/L (137-145)
[2020-04-02 07:43] LABS: Glucose Point of Care 179 (65-105)
[2020-04-02] MEDS: MAGNESIUM OXIDE 200 MG TABLET PO ×2 (08:23→21:01)
[2020-04-02] MEDS: ASPIRIN 81 MG ENTERIC TABLET PO (08:23)
[2020-04-02] MEDS: MEMANTINE 10 MG TABLET PO (08:23)
[2020-04-02 08:26] VITALS: PULSE 77
[2020-04-02] MEDS: METOPROLOL TARTRATE 12.5 MG TABLET PO ×2 (08:26→21:01)
--- NOTE | 2020-04-02 09:43 | PM.CNNEP ---
Assessment and Plan Assessment and plan (1) Hyponatremia: Code(s): E87.1 - Hypo-osmolality and hyponatremia Status: Acute Assessment and Plan: The patient has hyponatremia. This looks like it has been going on for at least 10 years. It seems to be intermittent. Most likely he has some underlying propensity toward hyponatremia. Possibly the Lower sodiums are reflective of increased water intake over the years. His urine sodium is high Plus his exam looks euvolemic and so this is not pre renal. He does have normal pressure hydrocephalus which could cause Chronic hyponatremia. depending on how long he has been on fluoxetine, this could also cause chronic hyponatremia. He does have thyroid disease. We will check a TSH. His random cortisol level is not above 15 so we will get a Cortrosyn stimulation test. It is unclear why his sodium dropped to 125 today. He has been getting some IV fluids (even though isotonic)which could do this in the face of SIADH. if normal pressure hydrocephalus were the sole cause of the hyponatremia, I would think that a therapeutic tap might make this sodium levels better. But that is unclear in chronic disease. At this point I would suggest fluid restriction once he starts eating again. Wean the fluoxetine. Check a TSH and do a Cortrosyn stim test. (2) Normal pressure hydrocephalus: Code(s): G91.2 - (Idiopathic) normal pressure hydrocephalus Status: Acute Assessment and Plan: He had a therapeutic tap for this. (3) Essential hypertension: Code(s): I10 - Essential (primary) hypertension Status: Acute Assessment and Plan: His blood pressure is under pretty good control (4) Type 2 diabetes mellitus: Code(s): E11.9 - Type 2 diabetes mellitus without complications Status: Acute Assessment and Plan: he is on Accu-Cheks and sliding-scale insulin (5) Dementia: Code(s): F03.90 - Unspecified dementia without behavioral disturbance Status: Acute Assessment and Plan: mental status seems to wax and wane. Neurology is on the case History of Present Illness Reason for Consult Consult date: 04/02/20 Chief Complaint Chief complaint: Confusion and weakness History of Present Illness Narrative: Of dual is a very pleasant 74-year-old gentleman who has senile dementia, normal pressure hydrocephalus, anemia, coronary disease, myocardial infarction just this year, diabetes, hyperlipidemia, hypothyroidism, hypertension, anemia, BPH. The patient came in the hospital because of confusion and weakness. This had apparently been going on for about a week. He also stopped eating as much in also stopped walking as much. Things continue to get worse so he was sent over from the residential to be evaluated in the emergency room. He was admitted. Neurology saw the patient and felt that a therapeutic lumbar puncture might be helpful so this was done. The patient's mental status has not really improved. It continues to wax and wane. Currently he opens his eyes and will follow very simple commands but will not speak. The patient's sodium level has been low for years. It waxes and wanes as well. He has had hyponatremic blood measurements since 2010. In January in February of 2019 and also in November and January of 2020 his sodium has ranged anywhere from 132-139. Upon admission here his sodium was 129. It ranged in the high 120s for the 1st few days. It was 126 on the 3rd and 129 on the 4th and then 125 today. So renal consultation was requested Other than his normal pressure hydrocephalus, he has no PAVING SUPERVISOR issues that would explain this. Chest x-ray does not reveal any pulmonary issues that would explain this. His cardiac status is okay. He does not look like he is dehydrated nor fluid overloaded. He is not on diuretics, nonsteroidal anti-inflammatory agents, narcotics, but he is on flu
[2020-04-02 10:42] LABS: Sodium 124 mmol/L (137-145)
--- NOTE | 2020-04-02 11:10 | WPDNEUROPN ---
Progress Note: A&P Assessment and Plan (1) Gait instability: Code(s): R26.81 - Unsteadiness on feet Status: Acute (2) Essential hypertension: Code(s): I10 - Essential (primary) hypertension Status: Acute (3) Normal pressure hydrocephalus: Code(s): G91.2 - (Idiopathic) normal pressure hydrocephalus Status: Acute (4) Chronic anemia: Code(s): D64.9 - Anemia, unspecified Status: Acute (5) Type 2 diabetes mellitus: Code(s): E11.9 - Type 2 diabetes mellitus without complications Status: Acute (6) Hypomagnesemia: Code(s): E83.42 - Hypomagnesemia Status: Acute (7) Hyponatremia: Code(s): E87.1 - Hypo-osmolality and hyponatremia Status: Acute (8) Hypokalemia: Code(s): E87.6 - Hypokalemia Status: Acute (9) Altered mental status: Code(s): R41.82 - Altered mental status, unspecified Status: Acute (10) Dementia: Code(s): F03.90 - Unspecified dementia without behavioral disturbance Status: Acute (11) Rhabdomyolysis: Qualifiers: Rhabdomyolysis type: non-traumatic Qualified Code(s): M62.82 - Rhabdomyolysis Code(s): M62.82 - Rhabdomyolysis Status: Acute (12) Encephalopathy: Code(s): G93.40 - Encephalopathy, unspecified Status: Acute (13) Shivering: Code(s): R68.83 - Chills (without fever) Status: Acute (14) Dementia: Qualifiers: Dementia type: unspecified type Dementia behavioral disturbance: with behavioral disturbance Qualified Code(s): F03.91 - Unspecified dementia with behavioral disturbance Code(s): F03.90 - Unspecified dementia without behavioral disturbance Status: Chronic (15) Anemia: Code(s): D64.9 - Anemia, unspecified Status: Chronic (16) BPH (benign prostatic hyperplasia): Qualifiers: Lower urinary tract symptom presence: unspecified whether lower urinary tract symptoms present Qualified Code(s): N40.0 - Benign prostatic hyperplasia without lower urinary tract symptoms Code(s): N40.0 - Benign prostatic hyperplasia without lower urinary tract symptoms Status: Chronic (17) Diabetes: Qualifiers: Diabetes mellitus type: type 2 Diabetes mellitus intermediate frame tender insulin use: without prison use Diabetes mellitus complication status: without complication Qualified Code(s): E11.9 - Type 2 diabetes mellitus without complications Code(s): E11.9 - Type 2 diabetes mellitus without complications Status: Chronic (18) Glaucoma: Code(s): H40.9 - Unspecified glaucoma Status: Chronic (19) Hypothyroid: Qualifiers: Hypothyroidism type: unspecified Qualified Code(s): E03.9 - Hypothyroidism, unspecified Code(s): E03.9 - Hypothyroidism, unspecified Status: Chronic (20) ST elevation myocardial infarction (STEMI): Qualifiers: Involved coronary artery: unspecified coronary artery Qualified Code(s): I21.3 - ST elevation (STEMI) myocardial infarction of unspecified site Code(s): I21.3 - ST elevation (STEMI) myocardial infarction of unspecified site Status: Acute (21) Acute UTI: Code(s): N39.0 - Urinary tract infection, site not specified Status: Acute Additional Plan stable Exam Const: General: cooperative, healthy appearing, comfortable and no acute distress Nutritional Appearance: average body habitus Limitations: language barrier (not much talking) Eyes: General: appearance normal, both eyes and all related structures Alignment and Position: alignment normal Periorbital: periorbital findings normal Eyelids: eyelids normal Conjunctivae: conjunctivae normal Sclera: sclerae normal Cornea: corneas normal Pupils: Equal, round and reactive pupils present EOM: EOMs intact bilaterally Neck: Neck: full ROM, no lymphadenopathy and no meningeal signs Resp: Effort & Inspection: normal resp
[2020-04-02] MEDS: COSYNTROPIN 0.25 MG/ML VIAL IV PUSH (11:14)
[2020-04-02] MEDS: FLUOXETINE HCL 10 MG CAPSULE PO (11:14)
[2020-04-02] MEDS: FLUOXETINE HCL 20 MG CAP PO (11:14)
[2020-04-02] MEDS: INSULIN ASPART (*BKC) 100 UNITS/ML SUB-Q ×2 (11:20→16:23)
[2020-04-02 12:06] LABS: Glucose Point of Care 306 (65-105)
--- NOTE | 2020-04-02 13:03 | PCDIET ---
Nutrition Follow-Up Complete: Inadequate oral intake R/T reduced appetite and memory as evidence by 86% of IBW PO intake of meals and supplements at 50% or greater to maintain wt Goal:Goal Met. Continue Goal Pt current nutrition is Regular +Enlive BID. Nutrition recommendation: Agree Last recorded weight is 66.7 kg (Steady from assessment wt of 67kg) Bowel Motility: 03/30 Labs Reviewed:Na 124, Mg 1.5, Glucose 179/306 Meds Noted:Prozac, Novolog, Synthroid, Mag Ox, Lopressor, Zofran, Protonix Additional Notes: Pt appetite appears better and wt holding steady. PO intake average over last four meals is 78%. Pt drinking Enlive BID. Ensure Enlive provides 350kcal, 20g of protein, and 26 essential vitamins and minerals per serving. Agree with fluid restriction per MD notes due to low Na. We will continue to follow PO intake , wt, labs every five days.
--- NOTE | 2020-04-02 13:36 | PM.IMPN ---
Progress Note: A&P Assessment and Plan (1) Altered mental status: Code(s): R41.82 - Altered mental status, unspecified Status: Acute Assessment and Plan: At baseline, patient is alert and oriented x4, is conversational, and does ADLs independently, per son-in-law. Head CT with no acute changes. No history or labs/imaging studies to suggest underlying infection, and blood cultures reveal NGTD. He is more alert today and is oriented to person, time, and president. I suspect that his mental status changes are due to his normal pressure hydrocephalus. Neurology has been consulted and their recommendations are appreciated. MRI reveals stable chronic ventriculomegaly and chronic atrial lead finding. He underwent therapeutic lumbar puncture 03/31/20 and will continue outpatient follow-up with Dr. Cruz. Will monitor labs to assess for underlying etiology Continue to monitor mental status (2) Dementia: Code(s): F03.90 - Unspecified dementia without behavioral disturbance Status: Chronic Assessment and Plan: Patient has a history of dementia but is typically alert and oriented as above. Continue memantine Continue to monitor mental status. (3) Normal pressure hydrocephalus: Code(s): G91.2 - (Idiopathic) normal pressure hydrocephalus Status: Acute Assessment and Plan: CT and MRI reveal chronic ventriculomegaly. Per son-in-law, he has had this diagnosis for some time and is a patient of Dr. Cruz regarding this condition. Neurology is on board. I discussed his care with his son-in-law who reports that the patient elected not to proceed with [facility] [employer] shunt several years ago. He underwent therapeutic lumbar puncture 03/31/20 which yielded 30mL of colorless fluid. CSF fluid analysis revealed opening pressure 16 cm, elevated RBC, elevated monocytes, and elevated glucose. Protein normal. Cryptococcus pending. CSF culture with no organisms seen. I discussed his care with Dr. Cruz who will plan to follow-up with the patient in 2 weeks outpatient. At that time, they will discuss possible referral to [facility] for [facility] shunt with Dr. Cruz. At this time, the patient's son is not sure they will want to proceed with [facility] [employer] shunt as the patient has refused this in the past. His NPH may be contributing to his AMS, gait instability, and urinary incontinence. He does appear to be improving from this standpoint as he was alert and willing to answer questions and follow simple commands today. Management per neurology, appreciate continued input and recommendations (4) Hypokalemia: Code(s): E87.6 - Hypokalemia Status: Acute Assessment and Plan: Potassium today is 3.7. Continue to monitor potassium level (5) Hyponatremia: Code(s): E87.1 - Hypo-osmolality and hyponatremia Status: Acute Assessment and Plan: Patient appears euvolemic although history suggest that he has had poor oral intake over the past week. Sodium was 125 today. He has multiple reasons for hyponatremia. It appears that he has chronic hyponatremia but his sodium level is lower today. He is on fluoxetine. He also has normal pressure hydrocephalus. IV fluids were discontinued 04/01/20. Urine random sodium is elevated at 271. Urine osmolality is pending. FENA is 1.3%. TSH is WNL at 3.560. Random cortisol was 12.10. Plan to consult nephrology, recommendations are greatly appreciated (6) Hypomagnesemia: Code(s): E83.42 - Hypomagnesemia Status: Acute Assessment and Plan: Magnesium is 1.5 today. Continue magnesium oxide. Continue to monitor magnesium level. (7) Type 2 diabetes mellitus: Code(s): E11.9 - Type 2 diabetes mellitus without complications Status: Acute Assessment and Plan: Recent hemoglobin A1c was 6.8% in November 2019. Blood sugars were reviewed and are elevated. Will hold metformin for now given poor oral intake. Will add low do
[2020-04-02 14:00] VITALS: BP 108/54; PULSE 67; RESP 20; TEMP 35.6; O2SAT 98
[2020-04-02 14:28] LABS: Cryptococcus Antigen Not Detected (Not Detected); Cryptococcus Specimen Source CSF
[2020-04-02 16:20] LABS: Glucose Point of Care 222 (65-105)
[2020-04-02] MEDS: PANTOPRAZOLE 40 MG TABLET PO (18:04)
[2020-04-02 18:06] VITALS: BP 149/62; PULSE 77; RESP 16; O2SAT 95
[2020-04-02] MEDS: INSULIN GLARGINE (*BKC) 100 UNITS/ML SUB-Q (20:58)
[2020-04-02 21:01] VITALS: PULSE 68
[2020-04-02] MEDS: FINASTERIDE 5 MG TABLET PO (21:01)
[2020-04-02 21:37] VITALS: BP 139/64; PULSE 68; RESP 14; TEMP 36.4; O2SAT 100
[2020-04-03 00:25] LABS: Glucose Point of Care 230 (65-105)
[2020-04-03 05:25] LABS: Hematocrit 37.8 % (42.0-52.0); Hemoglobin 12.4 g/dL (14.0-18.0); Mean Corpuscular HGB Conc 32.8 g/dl (32-36); Mean Corpuscular Hemoglobin 26.7 pg (26-34); Mean Corpuscular Volume 81.5 fl (80-100); Mean Platelet Volume 11.1 fl (7.4-10.4); Platelet Count Result 254 k/mm3 (150-375); Red Blood Count 4.64 M/mm3 (4.6-6.20); Red Cell Distribution Width 13.8 % (11.5-14.5); White Blood Count 8.5 K/mm3 (4.5-10.0)
[2020-04-03 05:33] LABS: Albumin Level 3.5 g/dL (3.5-5.1); Blood Urea Nitrogen 14 mg/dL (9-20); Calcium 8.6 mg/dL (8.4-10.2); Carbon Dioxide 27 mmol/L (22-30); Chloride 95 mmol/L (98-107); Estimated CRCL calculation 100 ml/min; Estimated Glomerular Filt Rate > 60; Glucose 136 mg/dL (75-110); Magnesium 1.7 mg/dL (1.6-2.3); Phosphorus 2.2 mg/dL (2.5-4.5); Potassium 3.6 mmol/L (3.4-5.0); Sodium 128 mmol/L (137-145)
[2020-04-03 06:00] VITALS: BP 134/59; PULSE 79; RESP 15; TEMP 36.8; O2SAT 98
[2020-04-03] MEDS: LEVOTHYROXINE SODIUM 25 MCG TABLET PO (06:11)
[2020-04-03 07:55] LABS: Glucose Point of Care 155 (65-105)
[2020-04-03 08:20] VITALS: PULSE 78
[2020-04-03] MEDS: METOPROLOL TARTRATE 12.5 MG TABLET PO (08:20)
[2020-04-03] MEDS: ONDANSETRON INJ 4 MG/2 ML VIAL IV PUSH (08:20)
[2020-04-03] MEDS: FLUOXETINE HCL 20 MG CAP PO (08:21)
[2020-04-03] MEDS: ASPIRIN 81 MG ENTERIC TABLET PO (08:21)
[2020-04-03] MEDS: FLUOXETINE HCL 10 MG CAPSULE PO (08:21)
[2020-04-03] MEDS: MAGNESIUM OXIDE 200 MG TABLET PO (08:21)
[2020-04-03] MEDS: MEMANTINE 10 MG TABLET PO (08:22)
[2020-04-03] MEDS: ACETAMINOPHEN 325 MG TABLET 650 MG PO (10:12)
--- NOTE | 2020-04-03 11:07 | WPDNEUROPN ---
Progress Note: A&P Assessment and Plan (1) Gait instability: Code(s): R26.81 - Unsteadiness on feet Status: Acute (2) Essential hypertension: Code(s): I10 - Essential (primary) hypertension Status: Acute (3) Normal pressure hydrocephalus: Code(s): G91.2 - (Idiopathic) normal pressure hydrocephalus Status: Acute (4) Chronic anemia: Code(s): D64.9 - Anemia, unspecified Status: Acute (5) Type 2 diabetes mellitus: Code(s): E11.9 - Type 2 diabetes mellitus without complications Status: Acute (6) Hyponatremia: Code(s): E87.1 - Hypo-osmolality and hyponatremia Status: Acute (7) Dementia: Code(s): F03.90 - Unspecified dementia without behavioral disturbance Status: Chronic (8) BPH (benign prostatic hyperplasia): Qualifiers: Lower urinary tract symptom presence: unspecified whether lower urinary tract symptoms present Qualified Code(s): N40.0 - Benign prostatic hyperplasia without lower urinary tract symptoms Code(s): N40.0 - Benign prostatic hyperplasia without lower urinary tract symptoms Status: Chronic (9) Glaucoma: Code(s): H40.9 - Unspecified glaucoma Status: Chronic (10) Hypothyroid: Qualifiers: Hypothyroidism type: unspecified Qualified Code(s): E03.9 - Hypothyroidism, unspecified Code(s): E03.9 - Hypothyroidism, unspecified Status: Chronic Additional Plan discuss with his son-in-law who tells me that his younger brother meaning the patient's younger brother who happened to be a physician bed operator in [facility] has spoken to a neurosurgeon at [facility] and who had accepted him to be transferred there for further evaluation of NPH which I have absolutely no problem will with I was not at in touch to [facility] and I am waiting further call back I have also discussed with the patient and told him that his family wants him to be transferred and he consents for it but I am not really sure how much does he understand at this point and the implications in the past the patient had refused shunting procedure and/or spinal tap on every occasion I have spoken with him likewise Dr. Frey Review of Systems Review of Systems: All systems reviewed & are unremarkable except as noted in HPI and below Exam Const: General: comfortable and no acute distress HENMT: General nose exam: Normal nares present Mouth: Yes moist mucous membranes Eyes: General: appearance normal, both eyes and all related structures Neck: Neck: supple and no JVD Resp: Effort & Inspection: normal respiratory effort Auscultation: clear to auscultation bilaterally Cardio: Rate: regular rate Rhythm: regular rhythm GI: Auscultation: normal bowel sounds Skin: General skin exam: normal color and no rashes or lesions noted Neuro: Other: patient is awake and alert has delayed responses and processing but is able to recognize this is examiner able to recognize that he is in the hospital which is [facility] able to tell me what year is this and who is the president and was the press it previous president is unable to perform simple calculation is judgment insight is limited is seems like he does not want to talk at times his gait disorder is roughly about the same he does not engage in therapy and refuses to do some reflexes are 1 to 2+ Babinski sign is equivocal he says that his bladder is controlled but I understand from his son-in-law that he does have urinary incontinence of late Extrem: General: normal to inspection Psych: Other: evidence of [id number] dementia Objective Data Vital Signs Vital Signs: Vital Signs - 24 hr 04/02/20 14:00 04/02/20 18:06 04/02/20 21:01 Temperature 35.6 C L Pulse Rate 67 77 68 Respiratory Rate 20 16 Blood Pressure 108/54 L 149/62 H Pulse Oximetry 98 95 04/02/20 21:37 04/03/20 06:00 04/03/20 08:20 Temperature 36.4 C 36.8 C Pul
[2020-04-03 11:57] LABS: Glucose Point of Care 188 (65-105)
--- NOTE | 2020-04-03 12:03 | PM.TDS ---
Transfer Discharge Sum: Prov Provider Date of admission: 03/30/20 11:28 Primary care physician: Dat Sanabria MD Admitting clinician: Ralph Joseph MD Consults: 03/29/20 14:17 Care Coordination Consult Routine Comment: Reason for Consult:: Residential Placement 03/30/20 Consult to Physician Routine Comment: Consulting Provider: William Oropeza greenhouse grower/MD group to consult: Dr. Oropeza Reason for consultation: Altered mental status Has provider been notified: Yes 03/31/20 TRC Consult Routine Comment: NPH / to see if it improves post spinal tap 04/02/20 Consult to Physician Routine Comment: Consulting Provider: Robert Gongora greenhouse grower/MD group to consult: Dr. Gongora Reason for consultation: Hyponatremia Has provider been notified: Yes Consult to Physician Routine Comment: Came to see pt at 9:40 Consulting Provider: Robert Gongora greenhouse grower/MD group to consult: Nephrology Reason for consultation: Hyponatremia - Urine sodium is 271 Has provider been notified: Yes DS: Diagnosis Admitting Diagnosis Admitting Diagnosis: Altered mental status, unspecified Discharge Diagnosis (1) Altered mental status: Code(s): R41.82 - Altered mental status, unspecified Status: Acute (2) Dementia: Code(s): F03.90 - Unspecified dementia without behavioral disturbance Status: Chronic (3) Normal pressure hydrocephalus: Code(s): G91.2 - (Idiopathic) normal pressure hydrocephalus Status: Chronic (4) Hypokalemia: Code(s): E87.6 - Hypokalemia Status: Resolved (5) Hyponatremia: Code(s): E87.1 - Hypo-osmolality and hyponatremia Status: Acute (6) Hypomagnesemia: Code(s): E83.42 - Hypomagnesemia Status: Resolved (7) Type 2 diabetes mellitus: Code(s): E11.9 - Type 2 diabetes mellitus without complications Status: Chronic (8) Chronic anemia: Code(s): D64.9 - Anemia, unspecified Status: Chronic (9) Hypothyroid: Qualifiers: Hypothyroidism type: unspecified Qualified Code(s): E03.9 - Hypothyroidism, unspecified Code(s): E03.9 - Hypothyroidism, unspecified Status: Chronic (10) Essential hypertension: Code(s): I10 - Essential (primary) hypertension Status: Chronic (11) Gait instability: Code(s): R26.81 - Unsteadiness on feet Status: Acute Transfer Discharge Sum: Med Medications Active and Home Medications: Home Medications aspirin [Aspir-81] 81 mg PO DAILY 02/04/20 [History Confirmed 03/29/20] finasteride 5 mg PO HS 02/20/20 [History Confirmed 03/29/20] levothyroxine 25 mcg PO DAILY 02/20/20 [History Confirmed 03/29/20] memantine 10 mg PO DAILY 02/20/20 [History Confirmed 03/29/20] metformin 500 mg PO BID 02/20/20 [History Confirmed 03/29/20] omeprazole 40 mg PO QPM 02/20/20 [History Confirmed 03/29/20] chlorpromazine 10 mg PO DAILY PRN 02/26/20 [History Confirmed 03/29/20] metoprolol tartrate 12.5 mg PO Q12HR #14 tablet 02/29/20 [Rx Confirmed 03/29/20] nitroglycerin [Nitrostat] 0.4 mg SUBLINGUAL Q5MIN PRN #30 tablet 02/29/20 [Rx Confirmed 03/29/20] fluoxetine 40 mg PO DAILY 03/29/20 [History Confirmed 03/29/20] Active Medications Acetaminophen (Tylenol Tablet) 650 mg PO Q4H PRN PRN Reason: Headache Last Admin: 04/03/20 10:12 Dose: 650 mg Documented by: Hydrocodone Bitart/Acetaminophen ([place] 5-325 Mg) 1 tab PO Q4H PRN PRN Reason: Pain Rated 4-6 Last Admin: 04/02/20 12:14 Dose: 1 tab Documented by: Aspirin (Aspirin Ec) 81 mg PO DAILY [facility] Last Admin: 04/03/20 08:21 Dose: 81 mg Documented by: Benzocaine (Anbesol Maximum Strength Gel) 1 applic BY MOUTH QID PRN PRN Reason: Oral Pain Chlorpromazine HCl (Thorazine Tablet) 10 mg PO DAILY PRN PRN Reason: Hiccups Dextrose (Dextrose 50% Syringe) 12.5 gm IV PUSH PRN PRN; Protocol PRN Reason: Hypoglycemia Finasteride (Proscar) 5 mg PO [facility] Last Admin: 04/02/20 21:01 Dose
[2020-04-03 14:00] VITALS: BP 127/59; PULSE 66; RESP 16; TEMP 36; O2SAT 99
[2020-04-03 16:31] LABS: Glucose Point of Care 228 (65-105)
[2020-04-03] MEDS: INSULIN ASPART (*BKC) 100 UNITS/ML SUB-Q (16:33)
--- NOTE | 2020-04-03 17:36 | PC.NURSE ---
Patient transferred to [place] via [facility]. Report to AKIN Purcell. Patient accepted to room [id number] bed A. .
[2020-04-04 04:35] LABS: Osmolality, Urine 912 mOsm/kg (50-1200)
[2020-04-05 03:34] LABS: Kappa\\Lambda Light Chains 0.87 (0.26-1.65)
[2020-04-05 05:29] LABS: Albumin 2.3 g/dL (3.8-4.8); Alpha 1 Globulin 0.4 g/dL (0.2-0.3); Beta 1 Globulin 0.3 g/dL (0.4-0.6); Gamma Globulin 0.4 g/dL (0.8-1.7); Protein, Total 4.7 g/dL (6.1-8.1)
== END 2020-04-03 17:35 | disposition short-term general hospital (02) | DRG 948 ==
LOC: ANHED 14:20 → ANH3MED 14:27
PROVIDERS: Internal Medicine Nephrology; Physician Assistant; Psychiatry & Neurology Neurology; Admitting Provider Internal Medicine; Emergency Provider Emergency Medicine; PCP Family Medicine; Visit Provider Internal Medicine
DX: R41.82 Altered mental status, unspecified (principal); G91.2 (Idiopathic) normal pressure hydrocephalus; E87.1 Hypo-osmolality and hyponatremia; E11.42 Type 2 diabetes mellitus with diabetic polyneuropathy; E03.9 Hypothyroidism, unspecified; D64.9 Anemia, unspecified; R26.81 Unsteadiness on feet; F03.90 Unspecified dementia, unspecified severity, without behavioral disturbance, psychotic disturbance, mood disturbance, and anxiety; E87.6 Hypokalemia; E83.42 Hypomagnesemia; I25.10 Atherosclerotic heart disease of native coronary artery without angina pectoris; I25.2 Old myocardial infarction; I10 Essential (primary) hypertension; E78.5 Hyperlipidemia, unspecified; N40.1 Benign prostatic hyperplasia with lower urinary tract symptoms; N39.498 Other specified urinary incontinence; H40.9 Unspecified glaucoma; Z66 Do not resuscitate; Z79.84 Long term (current) use of oral hypoglycemic drugs; Z87.891 Personal history of nicotine dependence
CPT/HCPCS: 36415; 51701; 62329; 70450; 70553; 71045; 74176; 80048; 80053; 80069; 81001; 82533; 82570; 82945; 83605; 83735; 83883; 83935; 84100; 84155; 84157; 84165; 84295; 84300; 84443; 85025; 85027; 85610; 85730; 86403; 87040; 87070; 88108; 89051; 93005; 96361; 96365; 96366; 96375; 97161; 97162; 97165; 97166; 99285; A9270; A9577; C9113; G0378; J0834; J1815; J2405; J3475; J7030